=== PATIENT | male | born 1975 | race Caucasian/White ===

== ENCOUNTER 2017-08-16 12:37 | Inpatient (IN) | payer OTHER ==
[~2017-08-16] VITALS: Ht 185.4 cm; Wt 159.1 kg
[~2017-08-16 12:37] MED LIST: ASPIRIN325 PO; CARVEDILOL12.5 MG PO; HYDROCHLOROTHIA25 M2 PO; KLOR-CON 1010 MEQ PO; LASIX 40 MG TAB40 M2 PO; LISINOPRIL5 MG PO; SYMBICORT80 MCG/4.1 INH
[2017-08-16 12:46] VITALS: BP 131/84
[2017-08-16 13:27] LABS: URINE BLOOD TRACE (Negative); URINE CLARITY SL CLOUDY; URINE COLOR YELLOW; URINE GLUCOSE-RANDOM NEGATIVE (Negative); URINE KETONES NEGATIVE (Negative); URINE LEUKOCYTES-REFLEX NEGATIVE (Negative); URINE PROTEIN TRACE (Negative); URINE SPECIFIC GRAVITY >= 1.030 (1.005-1.030); URINE UROBILINOGEN 0.2 E.U./dl (0.2-1.0)
[2017-08-16 13:29] LABS: ICTOTEST (BILI CONFIRMATORY) Negative (Negative); URINE BILIRUBIN 1+ (Negative); URINE NITRITE-REFLEX POSITIVE (Negative)
[2017-08-16 13:35] LABS: SQUAMOUS 0-3 Few /LPF (0-3); URINE RBC 3-10 Few /HPF (0-2); URINE WBC-REFLEX 6-15 Few /HPF (0-5)
[2017-08-16 13:36] LABS: CASTS None Seen /LPF (None Seen); CRYSTALS None Seen /LPF (None Seen); MUCUS >6 Heavy strn/LPF (None Seen)
[2017-08-16 13:44] LABS: HEMATOCRIT 46.9 % (42.0-52.0); MCV 91.2 fL (80.0-100.0); MPV 8.1 fl. (7.2-11.1); NUCLEATED RBCS 0 /100WBC; PLATELET COUNT* 237 thou/uL (150-400); RBC 5.15 mil/uL (4.50-6.00); RDW-CV 13.4 % (10.5-14.5); WBC 27.3 thou/uL (4.0-11.0)
[2017-08-16 13:56] LABS: ALBUMIN 3.4 g/dL (3.4-5.0); CREATININE 1.5 mg/dL (0.6-1.3); POTASSIUM 3.6 mmol/L (3.5-5.1); TOTAL BILIRUBIN 1.7 mg/dL (<0.1-1.0); TOTAL PROTEIN 7.2 g/dL (6.4-8.2)
[2017-08-16 14:07] LABS: ABSOLUTE LYMPHOCYTES 2.2 thou/uL (0.8-5.3); ABSOLUTE MONOCYTES 0.8 thou/uL (0.0-1.2); ABSOLUTE NEUTROPHILS 24.3 thou/uL (1.6-8.1)
[2017-08-16 14:08] LABS: PLATELET ESTIMATE ADEQUATE
[2017-08-16 15:07] LABS: INFLUENZA A ANTIGEN None Detected (None Detect); INFLUENZA B ANTIGEN None Detected (None Detect)
--- NOTE | 2017-08-16 16:38 | EKG ---
[place] [address] ELECTROCARDIOGRAM REPORT Name: ZENAIDA GEORGES JOEY Room: [place] [address] ADM IN [facility].#: [id number] Admission: 08/16/17 Attend Phys: Barb Angelo MD Discharge: Date of : 73 Report #: [id number] THIS REPORT FOR: //name// [facility] ED Test Date: 2017-08-16 Test Time: 13:08:12 Pat Name: ZENAIDA GEORGES Department: Room: [facility] Gender: M Paralegals: Lalitha MARQUEZ : 1975 Requested By: Mariann Salcedo Order Number: [id number] MD: Allen Patterson Measurements Intervals [place] Rate: 117 P: 47 NC: 148 QRS: 37 QRSD: 98 T: -5 QT: 319 QTc: 445 Interpretive Statements Sinus tachycardia Low voltage, precordial leads Compared to ECG 06/10/2015 13:58:53 Low QRS voltage now present Atrial abnormality no longer present Intraventricular conduction delay no longer present Electronically Signed On 08-16-2017 16:38:46 RECORDING ENGINEER by Allen Patterson [email or web address] <ELECTRONICALLY SIGNED> By: Allen Patterson MD, FACC 08/16/17 1638 1308 1308 Allen Patterson MD, [facility] /EPI
[2017-08-16 19:16] VITALS: BP 90/45
[2017-08-16 21:12] VITALS: BP 101/46
[2017-08-16 21:55] VITALS: BP 110/70
[2017-08-17] VITALS: BP 117/71
[2017-08-17 04:00] VITALS: BP 130/52
[2017-08-17 04:56] LABS: ABSOLUTE BASOPHILS 0.1 thou/uL (0.0-0.2); ABSOLUTE LYMPHOCYTES 1.2 thou/uL (0.8-5.3); ABSOLUTE MONOCYTES 1.3 thou/uL (0.0-1.2); ABSOLUTE NEUTROPHILS 16.5 thou/uL (1.6-8.1); BASOPHILS 0.6 %; EOSINOPHILS 0.3 %; HEMATOCRIT 41.8 % (42.0-52.0); HEMOGLOBIN 14.2 gm/dL (14.0-18.0); LYMPHOCYTES 6.4 %; MCH 31.1 pg (26.0-34.0); MCHC 33.9 g/dL (28.0-37.0); MCV 91.8 fL (80.0-100.0); MONOCYTES 6.7 %; MPV 8.1 fl. (7.2-11.1); NUCLEATED RBCS 0 /100WBC; PLATELET COUNT* 177 thou/uL (150-400); RBC 4.55 mil/uL (4.50-6.00); RDW-CV 13.3 % (10.5-14.5); WBC 19.1 thou/uL (4.0-11.0)
[2017-08-17 05:44] LABS: ALBUMIN 2.8 g/dL (3.4-5.0); CALCIUM 8.4 mg/dL (8.5-10.1); CREATININE 1.4 mg/dL (0.6-1.3); MAGNESIUM 1.8 mg/dL (1.8-2.4); POTASSIUM 4.2 mmol/L (3.5-5.1); TOTAL BILIRUBIN 1.3 mg/dL (<0.1-1.0); TOTAL PROTEIN 5.7 g/dL (6.4-8.2)
[2017-08-17 08:30] VITALS: BP 141/62
[2017-08-17 11:31] VITALS: BP 121/80
--- NOTE | 2017-08-17 15:36 | CON ---
[address] [address] CONSULTATION Name: ZENAIDA GEORGES Room: [address] ADM IN M.R.#: [id number] Admission: 08/16/17 Attend Phys: Barb Angelo MD Discharge: Date of : 73 Report #: [id number] THIS REPORT FOR: //name// CC: Clyde Farooq MD [facility] physician/PCP Barb Angelo INDICATION: Preoperative evaluation. HISTORY OF PRESENT ILLNESS: The patient is a very pleasant 41-year-old gentleman who was seen by myself in the past for nonischemic cardiomyopathy. At the time of his diagnosis, his ejection fraction was 25-30%. With treatment, his heart function normalized. The last echocardiogram I have on file is from April 2016, at which time his ejection fraction was 55-60%. He had been on carvedilol and lisinopril as well as low dose furosemide. In the interim, he has run out of carvedilol. He continues on furosemide with potassium supplementation and lisinopril. He denies any chest pain, tightness or pressure. He is not having any significant shortness of breath, dyspnea, orthopnea, or paroxysmal nocturnal dyspnea. He is without cardiac complaint at this time. PAST MEDICAL HISTORY: 1. Nonischemic cardiomyopathy. 2. Cardiac catheterization 06/10/2015. EF 20-25%. Dilated left ventricle. Elevated left ventricular end diastolic pressure. Moderate pulmonary hypertension. Normal coronary arteries. Findings consistent with nonischemic cardiomyopathy. 3. Hypertension. 4. Hyperlipidemia. 5. Chronic renal insufficiency. 6. Morbid obesity. 7. Obstructive sleep apnea. PAST SURGICAL HISTORY: 1. Hernia repair in 1974. 2. Right arthroscopic knee surgery in 1990 and 1998. FAMILY HISTORY: The patient's father with pulmonary embolus. The patient's mother has hypertension. He has a sister who is healthy. Two daughters who are healthy. SOCIAL HISTORY: The patient is a lifelong nonsmoker. ALLERGIES: TETRACYCLINE. CURRENT MEDICATIONS: Furosemide 40 mg p.o. daily, lisinopril 5 mg p.o. daily, and potassium chloride 20 [place] [address] CONSULTATION Name: ZENAIDA GEORGES Room: [address] IN [facility]#: [id number] Admission: 08/16/17 Attend Phys: Barb Angelo MD Discharge: Date of : 73 Report #: [id number] REVIEW OF SYSTEMS: Positive for abdominal discomfort and nausea. A 14-point review of systems otherwise unremarkable. PHYSICAL EXAMINATION: VITAL SIGNS: Blood pressure 130/52, pulse 107 and regular. GENERAL: This is an obese, pleasant white male, in no distress. Mood and affect appropriate. HEENT: Extraocular muscles are intact. Mucous membranes are moist. NECK: Shows no jugular venous distention. There are no carotid bruits. CHEST: Reveals clear lung joel without wheezes, rales or rhonchi. CARDIOVASCULAR: Reveals a tachycardic rhythm that is regular, without gallop or murmur. ABDOMEN: Reveals normal bowel sounds. The abdomen is minimally gender. EXTREMITIES: Shows no edema. Peripheral pulses are 2+ and palpable. LABS: Reviewed. Electrolytes within normal limits. BUN 20, creatinine 1.4, serum glucose 132. White blood cell count 19.1, hemoglobin 14.2, and platelet count 177,000. IMPRESSION AND RECOMMENDATIONS: 1. The patient has diverticulitis. He has been placed on IV antibiotics. His symptoms appear to be improving. There is questions as to whether or not he will need surgery acutely or electively in the near future. Continue treatment per general surgery. 2. History of nonischemic cardiomyopathy. He has been off his medications for sometime. I have asked to repeat an echocardiogram at this time. Physically, he does not appear to have any acute exacerbation of his heart failure. We will give IV fluid bolus for his mild tachycardia. Consider whether or not beta irving indicated pending echocardiogram results. 3. History of hypertension. Blood pressure adequately controlled at present. We will continue lisinopril at current dose. We will decide whether or not the patient needs to furosemide pending echocardiogram results. At this point in time, the patient does not appear to be a prohibitive risk to undergo surgery. I would like to obtain his echo results first to assure that his left ventricular systolic function remains normal. <ELECTRONICALLY SIGNED> By: Allen Patterson MD, FACC 08/17/17 1536 1026 [id number] Patterson MD, FACC /nt
--- NOTE | 2017-08-17 15:53 | 2DMMODE ---
[place] [address] 2 D/M-MODE ECHOCARDIOGRAM Name: ZENAIDA GEORGES Room: [address] ADM IN [facility]#: [id number] Admission: 08/16/17 Attend Phys: Barb Angelo, Discharge: Date of : 73 Date of Service: 08/17/17 1552 Report #: [id number] THIS REPORT FOR: //name// APPROVED REPORT Study performed: 08/17/2017 10:46:08 EXAM: Comprehensive 2D, Doppler, and color-flow Echocardiogram Patient Location: In-Patient Room #: [facility] Status: routine BSA: 2.70 HR: 105 bpm BP: 130/52 mmHg Other Information Study Quality: Good Indications Pre-Op Hx. of NICM 2D Dimensions LVEF(%): 63.72 (>50%) IVSd: 16.07 (7-11mm) LVOT Diam: 22.37 (18-24mm) LVDd: 46.66 mm PWd: 11.83 (7-11mm) Ascending Ao: 29.83 (22-36mm) LVDs: 30.53 (25-40mm) Aortic Root: 26.11 mm Beyer's LVEF: 63.72 % Volumes Left Atrial Volume (Systole) LA ESV Index: 24.80 mL/m2 Aortic Valve AoV Peak Huy.: 1.63 m/s AO Peak Gr.: 10.57 mmHg LVOT Max P.49 mmHg AO Mean Gr.: 6.09 mmHg LVOT Mean P.92 mmHg LVOT Max V: 1.17 m/s AO V2 VTI: 27.98 cm LVOT Mean V: 0.80 m/s VAISHALI (VTI): 2.80 cm2 LVOT V1 VTI: 19.94 cm Mitral Valve E/A Ratio: 1.06 [place] [address] 2 D/M-MODE ECHOCARDIOGRAM Name: ZENAIDA GEORGES Room: [address] IN .R.#: [id number] Admission: 08/16/17 Attend Phys: Barb Angelo, Discharge: Date of : 73 Date of Service: 08/17/17 1552 Report #: [id number] MV Decel. Time: 180.26 ms MV E Max Huy.: 1.08 m/s MV PHT: 52.28 ms MVA (PHT): 4.21 cm2 TDI E/Lateral E': 7.71 E/Medial E': 12.00 Medial E' Huy.: 0.09 m/s Lateral E' Huy.: 0.14 m/s Pulmonary Valve PV Peak Huy.: 1.16 m/s PV Peak Gr.: 5.34 mmHg Tricuspid Valve TR Peak Gr.: 20.23 mmHg RVSP: 25.23 mmHg Left Ventricle The left ventricle is normal size. There is normal LV segmental wall motion. There is normal left ventricular wall thickness. Left ventricular systolic function is normal. LVEF is 55-60%. Transmitral Doppler flow pattern suggests impaired LV relaxation. Right Ventricle The right ventricle is normal size. The right ventricular systolic function is normal. Atria Left atrium is mildly dilated. The right atrium size is normal. Aortic Valve The aortic valve is normal in structure. No aortic regurgitation is present. There is no aortic valvular stenosis. Mitral Valve The mitral valve is normal in structure. Mild mitral regurgitation. No evidence of mitral valve stenosis. Tricuspid Valve The tricuspid valve is normal in structure. Mild tricuspid regurgitation. The RVSP is _25.2 mmHg. Pulmonic Valve The pulmonary valve is normal in structure. There is no pulmonic [place] [address] 2 D/M-MODE ECHOCARDIOGRAM Name: ZENAIDA GEORGES Room: [address] IN .R.#: [id number] Admission: 08/16/17 Attend Phys: Barb Angelo, Discharge: Date of : 73 Date of Service: 08/17/17 1552 Report #: [id number] Great Vessels The aortic root is normal in size. IVC is normal in size and collapses with >50% inspiration Pericardium There is no pericardial effusion. <Conclusion> The left ventricle is normal size. There is normal left ventricular wall thickness. Left ventricular systolic function is normal. LVEF is 55-60%. Transmitral Doppler flow pattern suggests impaired LV relaxation. Left atrium is mildly dilated. Mild mitral regurgitation. Mild tricuspid regurgitation. The RVSP is _25.2 mmHg. <ELECTRONICALLY SIGNED> By: Allen Patterson MD, FACC 08/17/17 [phone] Allen Patterson MD, FACC /INF
[2017-08-17 17:59] VITALS: BP 107/55
[2017-08-17 20:10] VITALS: BP 111/58
[2017-08-18] VITALS: BP 113/74
[2017-08-18 04:00] VITALS: BP 123/76
[2017-08-18 05:23] LABS: ABSOLUTE BASOPHILS 0.2 thou/uL (0.0-0.2); ABSOLUTE EOSINOPHILS 0.1 thou/uL (0.0-0.7); ABSOLUTE LYMPHOCYTES 1.5 thou/uL (0.8-5.3); ABSOLUTE MONOCYTES 1.3 thou/uL (0.0-1.2); BASOPHILS 0.8 %; EOSINOPHILS 0.7 %; HEMATOCRIT 42.6 % (42.0-52.0); HEMOGLOBIN 14.4 gm/dL (14.0-18.0); LYMPHOCYTES 7.3 %; MCH 31.3 pg (26.0-34.0); MCHC 33.9 g/dL (28.0-37.0); MCV 92.3 fL (80.0-100.0); MONOCYTES 6.3 %; MPV 8.5 fl. (7.2-11.1); NUCLEATED RBCS 0 /100WBC; PLATELET COUNT* 200 thou/uL (150-400); POLYS 84.9 %; RBC 4.61 mil/uL (4.50-6.00); RDW-CV 13.4 % (10.5-14.5)
[2017-08-18 05:29] LABS: CALCIUM 8.4 mg/dL (8.5-10.1); CREATININE 1.3 mg/dL (0.6-1.3)
[2017-08-18 08:30] VITALS: BP 124/77
[2017-08-18 11:41] VITALS: BP 124/79
[2017-08-18 16:00] VITALS: BP 117/65
[2017-08-18 20:00] VITALS: BP 124/62
[2017-08-19] VITALS: BP 134/92
[2017-08-19 04:00] VITALS: BP 138/91
[2017-08-19 05:40] LABS: ALBUMIN 2.2 g/dL (3.4-5.0); CALCIUM 8.4 mg/dL (8.5-10.1); CREATININE 1.2 mg/dL (0.6-1.3); HEMATOCRIT 42.2 % (42.0-52.0); HEMOGLOBIN 14.3 gm/dL (14.0-18.0); MCH 31.5 pg (26.0-34.0); MCHC 33.9 g/dL (28.0-37.0); MCV 92.9 fL (80.0-100.0); MPV 8.4 fl. (7.2-11.1); PHOSPHORUS* 2.3 mg/dL (2.5-4.9); POTASSIUM 3.8 mmol/L (3.5-5.1); RBC 4.54 mil/uL (4.50-6.00); RDW-CV 13.3 % (10.5-14.5); TOTAL BILIRUBIN 0.5 mg/dL (<0.1-1.0); TOTAL PROTEIN 6.1 g/dL (6.4-8.2); WBC 16.1 thou/uL (4.0-11.0)
[2017-08-19 06:09] LABS: ALBUMIN 2.4 g/dL (3.4-5.0); CALCIUM 8.2 mg/dL (8.5-10.1); CREATININE 1.2 mg/dL (0.6-1.3); TOTAL BILIRUBIN 0.5 mg/dL (<0.1-1.0); TOTAL PROTEIN 5.5 g/dL (6.4-8.2)
[2017-08-19 08:00] VITALS: BP 150/95
[2017-08-19 11:58] VITALS: BP 141/98
[2017-08-19 14:47] VITALS: BP 141/98
[2017-08-19 15:34] VITALS: BP 152/91
[2017-08-20 00:45] VITALS: BP 125/82
[2017-08-20 04:00] VITALS: BP 136/84
[2017-08-20 05:29] LABS: HEMATOCRIT 45.6 % (42.0-52.0); HEMOGLOBIN 15.4 gm/dL (14.0-18.0); MCH 31.2 pg (26.0-34.0); MCHC 33.8 g/dL (28.0-37.0); MCV 92.4 fL (80.0-100.0); MPV 7.8 fl. (7.2-11.1); NUCLEATED RBCS 0 /100WBC; PLATELET COUNT* 256 thou/uL (150-400); RBC 4.93 mil/uL (4.50-6.00); RDW-CV 13.3 % (10.5-14.5); WBC 22.5 thou/uL (4.0-11.0)
[2017-08-20 06:08] LABS: CREATININE 1.4 mg/dL (0.6-1.3); POTASSIUM 4.6 mmol/L (3.5-5.1); TOTAL BILIRUBIN 0.9 mg/dL (<0.1-1.0); TOTAL PROTEIN 5.7 g/dL (6.4-8.2)
[2017-08-20 06:40] LABS: ABSOLUTE LYMPHOCYTES 1.8 thou/uL (0.8-5.3); ABSOLUTE MONOCYTES 0.7 thou/uL (0.0-1.2)
[2017-08-20 06:41] LABS: PLATELET ESTIMATE ADEQUATE; POLYCHROMASIA 1+
[2017-08-20 07:30] VITALS: BP 103/64
[2017-08-20 17:30] VITALS: BP 114/69
[2017-08-20 19:08] VITALS: BP 120/71
[2017-08-20 21:00] VITALS: BP 117/62
[2017-08-21 00:34] VITALS: BP 117/60
[2017-08-21 04:12] VITALS: BP 118/69
[2017-08-21 06:21] LABS: ABSOLUTE BASOPHILS 0.1 thou/uL (0.0-0.2); ABSOLUTE EOSINOPHILS 0.8 thou/uL (0.0-0.7); ABSOLUTE LYMPHOCYTES 1.6 thou/uL (0.8-5.3); ABSOLUTE MONOCYTES 1.7 thou/uL (0.0-1.2); ABSOLUTE NEUTROPHILS 13.1 thou/uL (1.6-8.1); BASOPHILS 0.7 %; EOSINOPHILS 4.6 %; HEMATOCRIT 40.6 % (42.0-52.0); LYMPHOCYTES 9.1 %; MCHC 33.1 g/dL (28.0-37.0); MCV 93.6 fL (80.0-100.0); MONOCYTES 9.9 %; NUCLEATED RBCS 0 /100WBC; PLATELET COUNT* 229 thou/uL (150-400); POLYS 75.7 %; RBC 4.34 mil/uL (4.50-6.00); RDW-CV 13.3 % (10.5-14.5); WBC 17.4 thou/uL (4.0-11.0)
[2017-08-21 06:26] LABS: HEMOGLOBIN 13.4 gm/dL (14.0-18.0)
[2017-08-21 06:31] LABS: ALBUMIN 1.9 g/dL (3.4-5.0); CALCIUM 7.8 mg/dL (8.5-10.1); CREATININE 1.5 mg/dL (0.6-1.3); MAGNESIUM 2.7 mg/dL (1.8-2.4); PHOSPHORUS* 3.2 mg/dL (2.5-4.9); POTASSIUM 4.2 mmol/L (3.5-5.1); TOTAL BILIRUBIN 0.5 mg/dL (<0.1-1.0); TOTAL PROTEIN 5.5 g/dL (6.4-8.2)
[2017-08-21 08:07] VITALS: BP 131/67
[2017-08-21 16:19] VITALS: BP 121/78
[2017-08-21 20:00] VITALS: BP 128/63
[2017-08-21 23:52] VITALS: BP 132/68; BP 132/82
[2017-08-22 05:08] LABS: MCH 31.4 pg (26.0-34.0); MCHC 33.4 g/dL (28.0-37.0); MCV 94.2 fL (80.0-100.0); MPV 7.9 fl. (7.2-11.1); RBC 4.89 mil/uL (4.50-6.00); RDW-CV 13.7 % (10.5-14.5)
[2017-08-22 05:09] LABS: HEMOGLOBIN 15.4 gm/dL (14.0-18.0)
[2017-08-22 05:19] LABS: ALBUMIN 1.9 g/dL (3.4-5.0); CALCIUM 7.9 mg/dL (8.5-10.1); CREATININE 1.3 mg/dL (0.6-1.3); MAGNESIUM 2.6 mg/dL (1.8-2.4); PHOSPHORUS* 3.4 mg/dL (2.5-4.9); POTASSIUM 3.5 mmol/L (3.5-5.1); TOTAL BILIRUBIN 0.3 mg/dL (<0.1-1.0); TOTAL PROTEIN 5.5 g/dL (6.4-8.2)
[2017-08-22 08:13] VITALS: BP 147/82
[2017-08-22 16:08] VITALS: BP 136/71
[2017-08-22 20:00] VITALS: BP 139/81
[2017-08-23 04:17] LABS: ABSOLUTE EOSINOPHILS 0.6 thou/uL (0.0-0.7); ABSOLUTE LYMPHOCYTES 1.6 thou/uL (0.8-5.3); ABSOLUTE MONOCYTES 1.1 thou/uL (0.0-1.2); ABSOLUTE NEUTROPHILS 7.6 thou/uL (1.6-8.1); EOSINOPHILS 5.6 %; HEMATOCRIT 38.4 % (42.0-52.0); LYMPHOCYTES 14.6 %; MCH 31.3 pg (26.0-34.0); MCHC 33.6 g/dL (28.0-37.0); MCV 93.1 fL (80.0-100.0); MONOCYTES 9.8 %; MPV 7.9 fl. (7.2-11.1); NUCLEATED RBCS 0 /100WBC; PLATELET COUNT* 224 thou/uL (150-400); RBC 4.13 mil/uL (4.50-6.00); RDW-CV 13.3 % (10.5-14.5); WBC 10.9 thou/uL (4.0-11.0)
[2017-08-23 04:29] LABS: HEMOGLOBIN 12.9 gm/dL (14.0-18.0)
[2017-08-23 04:31] LABS: ALBUMIN 1.9 g/dL (3.4-5.0); CALCIUM 7.9 mg/dL (8.5-10.1); CREATININE 1.1 mg/dL (0.6-1.3); MAGNESIUM 2.2 mg/dL (1.8-2.4); PHOSPHORUS* 3.3 mg/dL (2.5-4.9); POTASSIUM 3.5 mmol/L (3.5-5.1); TOTAL BILIRUBIN 0.3 mg/dL (<0.1-1.0); TOTAL PROTEIN 5.5 g/dL (6.4-8.2)
[2017-08-23 08:00] VITALS: BP 146/94
--- NOTE | 2017-08-23 15:42 | S ---
[place] [address] SURGICAL PATH RPT PROCEDURE Name: GREG AN Room: [address] IN M.R.#: [id number] Admission: 08/16/17 Date of : 73 Discharge: Report #: [id number] Path Case #: [id number] PATHOLOGY REPORT COLLECTION DATE: 08/19/2017 RECEIVED DATE: 08/20/2017 SUBMITTING PHYS: Dr. Bobby Ram OTHER PHYS: Dr. Barb Angelo SPECIMEN(S) RECEIVED: A.Sigmoid colon * * * * * * * * * * * * FINAL DIAGNOSIS: Sigmoid colon: - Two segments of benign colon with longer segment showing diverticular disease including chronic and acute diverticulitis and evidence of perforation including pericolic abscess in association with vegetable material and chronic and acute serositis and serosal fibrosis. - One benign pericolic lymph node. (BRUNO:mariangel; 08/23/2017) PATHOLOGIST: Abdullahi Hammonds M.D. REPORT ELECTRONICALLY SIGNED BY: Abdullahi Hammonds M.D. DATE/TIME: 08/23/2017 15:41 * * * * * * * * * * * * GROSS PATHOLOGY: Received in formalin labeled "Greg An, sigmoid colon" and consists of 2 segments of large intestine measuring 8.2 cm in length by 2.6 cm in diameter and 16.0 cm in length by 3.1 cm in diameter. Each segment is surrounded by mesocolon that measures up to 2.7 cm thick. The serosa of each is glistening, yellow, red, with prominent exudate identified. The shorter segment is opened longitudinally. The lumen contains pasty brown green stool. The mucosa is hyperemic, ho, glistening, with no masses. This segment is further serially transversely sectioned revealing an intact muscularis propria. No diverticula are identified. The longer segment is opened longitudinally. The lumen contains pasty brown green stool and "fecal balls" measuring up to 0.7 cm in greatest diameter. The mucosa is hyperemic, ho, glistening, with no masses identified. The segment is further serially transversely sectioned revealing a few diverticula ranging in depth from 0.3 cm to 0.6 p.m. A definitive perforation is not grossly identified. The mesocolon is fibrotic, yellow orange, [place] [address] SURGICAL PATH RPT PROCEDURE Name: GREG AN Room: [address] IN [facility].#: [id number] Admission: 08/16/17 Date of : 73 Discharge: Report #: [id number] Path Case #: [id number] Braille Coder sections are submitted A1-A9. A1 margins of shorter segment A2-A3 transmural sections of shorter segment A4 margins of longer segment A5-A7 transmural sections of longer segment A8-A9 mesocolon of longer segment (SARAH; 08/20/2017) CLINICAL HISTORY: Diverticulitis with intraperitoneal abscess INITIAL CPT CODE(S): A; 32046 Professional services performed by [facility] at [facility] [address] [place] [address] Technical services performed by [facility] at [address] [place] [address], [address], [place] [address]. [facility] [address] [place] [address] PHONE: [phone] DIRECTOR: Woo Saldana M.D. * * * END OF REPORT * * *
[2017-08-23 16:00] VITALS: BP 144/94
[2017-08-23 20:20] VITALS: BP 136/74
[2017-08-24 00:17] VITALS: BP 128/79
[2017-08-24 04:00] VITALS: BP 148/89
[2017-08-24 06:24] LABS: CALCIUM 8.3 mg/dL (8.5-10.1); CREATININE 0.9 mg/dL (0.6-1.3); MAGNESIUM 2.2 mg/dL (1.8-2.4); PHOSPHORUS* 3.3 mg/dL (2.5-4.9)
[2017-08-24 07:30] VITALS: BP 136/80
[2017-08-24 16:00] VITALS: BP 118/66
[2017-08-24 20:30] VITALS: BP 133/91
[2017-08-24 23:43] VITALS: BP 149/79
[2017-08-25 03:50] VITALS: BP 140/79
[2017-08-25 08:00] VITALS: BP 124/68
[2017-08-25 15:00] VITALS: BP 130/76
[2017-08-25 18:03] VITALS: BP 124/68
[2017-08-25 20:30] VITALS: BP 133/71
[2017-08-26 00:14] VITALS: BP 133/78
[2017-08-26 03:22] VITALS: BP 144/70
[2017-08-26 05:53] LABS: HEMATOCRIT 41.7 % (42.0-52.0); HEMOGLOBIN 13.8 gm/dL (14.0-18.0); MCH 30.6 pg (26.0-34.0); MCHC 33.1 g/dL (28.0-37.0); MCV 92.3 fL (80.0-100.0); RBC 4.52 mil/uL (4.50-6.00); RDW-CV 13.2 % (10.5-14.5); WBC 14.7 thou/uL (4.0-11.0)
[2017-08-26 06:19] LABS: ALBUMIN 2.3 g/dL (3.4-5.0); CALCIUM 8.4 mg/dL (8.5-10.1); CREATININE 1.3 mg/dL (0.6-1.3); TOTAL BILIRUBIN 0.4 mg/dL (<0.1-1.0); TOTAL PROTEIN 5.9 g/dL (6.4-8.2)
[2017-08-26 08:15] VITALS: BP 139/81
[2017-08-26 15:54] VITALS: BP 143/79
[2017-08-26 20:50] VITALS: BP 126/83
[2017-08-27] VITALS (7 sets, daily range): BP systolic 125–143; BP diastolic 72–87
[2017-08-27] MEDS ORDERED: HYDROCODONE-ACE15 ML PO (15:32)
--- NOTE | 2017-09-08 10:47 | OP ---
[address] [address] OPERATIVE REPORT Name: ZENAIDA GEORGES Room: [address] IN M.R.#: [id number] Admission: 08/16/17 Attend Phys: Barb Angelo MD Discharge: 08/27/17 Date of : 73 Report #: [id number] THIS REPORT FOR: //name// CC: HAYDEE physician/PCP Barb Angelo DATE OF SERVICE: 08/19/2017 PRIMARY CARE PHYSICIAN: There is no primary care physician. PREOPERATIVE DIAGNOSES: 1. Diverticulitis with free intraperitoneal air. 2. Morbid obesity with a body mass index of 48. POSTOPERATIVE DIAGNOSES: 1. Perforated diverticulitis with multiple intraperitoneal abscesses. 2. Morbid obesity with a body mass index of 48. PROCEDURES: Diagnostic laparoscopy converted to exploratory laparotomy with sigmoid colon resection and Saulo's colostomy, drainage of intraperitoneal abscesses and placement of Prevena wound VAC. SURGEON: Dr. Bobby Ram. ENVIRONMENTAL HEALTH TECHNICIAN: Dr. Katlin Lyle. SECOND LUMBER CHAIN OFFBEARER: Dr. Jose Enrique Knight. ANESTHESIA: General endotracheal. ESTIMATED BLOOD LOSS: 300 mL. COMPLICATIONS: None. SPECIMEN REMOVED: Sigmoid colon. INDICATIONS FOR PROCEDURE: This is a 41-year-old morbidly obese gentleman who presented to the Emergency Room 3 days ago with acute diverticulitis with localized free air. There was also noted to be a small amount of free air in the subdiaphragmatic space on the right side. However, he was quite stable and he requested that we attempt conservative treatment rather than take him immediately to surgery. Over the next 3 days, he continued to improve clinically. However, a CT scan was ordered today, which showed increased amount of free intraperitoneal air and enlarging air and fluid collection surrounding the sigmoid colon. So, we chose to take him to surgery [place] [address] OPERATIVE REPORT Name: ZENAIDA GEORGES Room: [address]#: [id number] Admission: 08/16/17 Attend Phys: Barb Angelo MD Discharge: 08/27/17 Date of : 73 Report #: [id number] DESCRIPTION OF PROCEDURE: After obtaining proper consents and discussing risks and complications with the patient, he was taken to the operating room, laid in a supine position and administered general anesthesia. A Costello catheter was inserted. He was then prepped and draped in the usual fashion. A timeout was performed. We confirmed the appropriate patient and procedure. All necessary equipment was within the room. We then made a small supraumbilical skin incision with a #11 scalpel blade. This was carried down through the skin into the subcutaneous tissue using electrocautery for hemostasis. Once the fascia was encountered, it was incised along the midline, grasped and elevated with [facility] clamps and divided further. The peritoneum was then bluntly opened using a hemostat. A finger was placed inside the peritoneal cavity to assure there were no stephanie-incisional adhesions. Next, 2-0 Vicryl sutures were placed in a [id number] fashion to secure the Hermilo trocar, which was then inserted and insufflation was begun. Once insufflation was complete, we attempted to visualize the intra-abdominal organs; however, there were quite a few omental adhesions, mostly in the right lower quadrant, but also somewhat in the left lower quadrant. We were able to sweep away some of these adhesions just using the camera and once we swept away the omentum, we identified a very large abscess cavity in the right lower quadrant and it appeared to be surrounding the sigmoid colon. At this point, we knew that we would have to most likely do a resection, so we immediately converted to a laparotomy. The insufflation was stopped, the air was released. Trocar was removed. We then made a midline incision extending from the supraumbilical incision down towards the pubic symphysis using a #10 scalpel blade. This was carried down through the skin into the subcutaneous tissue until the fascia was encountered. The fascia was then opened for the entire length of the incision as was the peritoneum. We were then able to explore the abdominal cavity and identified multiple areas of adhesions and thickened bowel. We were able to separate the omentum and open the numerous small abscess cavities which were suctioned immediately. We then identified the sigmoid colon and because the patient was quite morbidly obese, there were extremely large epiploic appendages surrounding his entire sigmoid colon, which also made identification of some of the anatomy more difficult and also these epiploic appendages were attached to the structures surrounding the sigmoid colon. We did identify that the sigmoid colon was fairly redundant and went over to the right side and that appears to be where the perforation was, either just to the right or right in the midline. Just posterior to the bladder, there was a large area of inflammation. We did not actually see any active stool leaking out, but there were numerous areas of inflammatory fibrinous tissue. At this point, we elected to perform a sigmoid colon resection. We elected to take down the White line of Toldt along the left pericolic gutter first and then chose an area for the proximal resection. [place] [address] OPERATIVE REPORT Name: ZENAIDA GEORGES Room: [address]#: [id number] Admission: 08/16/17 Attend Phys: Barb Angelo MD Discharge: 08/27/17 Date of : 73 Report #: [id number] mesentery of the descending colon. Then, we used a YOSSI 80 to divide the colon in this area. We then sequentially clamped and divided the mesentery of the sigmoid colon. The mesentery was quite thick, partially because of the inflammation and partially because of the patient's morbid obesity and this did take some time. Once we were beyond the perforation distally and there was some good healthy bowel, we used a TA-60 stapler to divide the distal colon. Prior to doing this, though I had made a hole in the sigmoid colon in an area of inflammation using the LigaSure device. So we resected that area first and then took the last segment with the TA stapler and then used the LigaSure to take down the mesocolon. Once this was done, we then explored the abdomen further. We identified that the small bowel was markedly dilated. We traced the small bowel from the ligament of Treitz all the way back to the terminal ileum. Just proximal to the terminal ileum, there was an area of inflammation noted, where there were abscesses as well, which was causing at least a partial small-bowel obstruction. These were then broken up. The small bowel was markedly dilated and we felt that this would be difficult to reduce back into the abdominal cavity without decompressing it. We made attempts to milk the fluid and air from the distal small bowel back into the stomach and nasogastric tube, but we were not able to get much air out. So, at this point, we elected to place a pursestring suture in the mid small bowel and then opened the small enterotomy and we placed our suction in the bowel and then milked the contents back towards our suction, both proximally and distally, decompressing the small bowel quite nicely. We then removed the suction, closed the pursestring suture and then oversewed the enterotomy using 2-0 Vicryl sutures in a Lembert fashion. We then bubble tested the area to assure that there was no leak. Following this, we copiously irrigated the abdominal cavity with approximately 6-7 liters of saline solution. We then chose an area for ostomy formation. Again because the patient is quite obese, the abdominal wall was quite thick and also the fat surrounding the colon was quite thick, so this was made much more difficult. We did open a window in the abdominal wall using electrocautery. This was carried down through the fascia. Once the fascia was encountered, a cruciate incision was made. We then opened the peritoneum and muscle as well and then we brought up the sigmoid colon through this with no tension noted whatsoever. We then placed a 19-Lithuanian Puma-Day drain. We then closed the large abdominal wound using 2 running #1 looped PDS sutures. The subcutaneous tissues were closed using 3-0 Vicryl suture. The skin was closed using jennifer. We then placed a Prevena wound VAC over top of the jennifer and then turned our attention to maturing the stoma. The stoma was first attached to the fascia using 2-0 Prolene suture at the 12 o'clock, 3 o'clock, 6 o'clock and 9 o'clock positions. We then matured the stoma in the usual fashion, opening the staple line and then everting it and attaching to the subcutaneous tissues and serosa. The patient was then awakened and transported to the recovery room in stable condition. [address] [address] OPERATIVE REPORT Name: ZENAIDA GEORGES Room: [address] IN ..#: [id number] Admission: 08/16/17 Attend Phys: Barb Angelo MD Discharge: 08/27/17 Date of : 73 Report #: [id number] Sponge, needle and instrument counts were all correct at the end of the procedure. The patient tolerated this well. <ELECTRONICALLY SIGNED> By: Bobby Ram DO 09/08/17 1047 2330 [id number] Ram DO /nt
[2018-06-14] MEDS ORDERED: LIPITOR 20 MG T20 M1 PO (11:12)
[2018-06-14] MEDS ORDERED: CELEXA20 MG PO (11:12)
== END 2017-08-27 18:15 | disposition home health service (06) | DRG 329 ==
LOC: M.ERS 12:37 → M.2W 14:56 → M.TBA-ER 14:56 → M.2W 21:12 → M.ORTHSURG 08-19 14:51 → M.2W 08-20 00:52 → M.ORTHSURG 08-20 17:49
PROVIDERS: Internal Medicine; Nurse Practitioner Family; Surgery; ADMIT Internal Medicine
DX: K57.20 Diverticulitis of large intestine with perforation and abscess without bleeding (principal); I50.23 Acute on chronic systolic (congestive) heart failure; J15.9 Unspecified bacterial pneumonia; E44.1 Mild protein-calorie malnutrition; I42.9 Cardiomyopathy, unspecified; Z68.42 Body mass index [BMI] 45.0-49.9, adult; K56.600 Partial intestinal obstruction, unspecified as to cause; N17.9 Acute kidney failure, unspecified; R65.10 Systemic inflammatory response syndrome (SIRS) of non-infectious origin without acute organ dysfunction; I13.0 Hypertensive heart and chronic kidney disease with heart failure and stage 1 through stage 4 chronic kidney disease, or unspecified chronic kidney disease; N18.2 Chronic kidney disease, stage 2 (mild); E86.0 Dehydration; R00.0 Tachycardia, unspecified; I27.20 Pulmonary hypertension, unspecified; E78.5 Hyperlipidemia, unspecified; E66.01 Morbid (severe) obesity due to excess calories; G47.33 Obstructive sleep apnea (adult) (pediatric); K59.00 Constipation, unspecified; D64.9 Anemia, unspecified; Z28.21 Immunization not carried out because of patient refusal; Z79.82 Long term (current) use of aspirin; Z79.899 Other long term (current) drug therapy; Z88.1 Allergy status to other antibiotic agents; Z82.49 Family history of ischemic heart disease and other diseases of the circulatory system; Z83.79 Family history of other diseases of the digestive system

== ENCOUNTER 2018-06-20 09:15 | Inpatient (IN) | payer OTHER ==
[~2018-06-20] VITALS: Ht 185.4 cm; Wt 149.7 kg
--- NOTE | ~2018-06-20 | H ---
[address] [address] HISTORY AND PHYSICAL Name: ZENAIDA GEORGES Room: [address] IN M.R.#: [id number] Admission: 06/20/18 Attend Phys: Bobby Ram DO Discharge: 06/28/18 Date of : 73 Report #: [id number] THIS REPORT FOR: //name// Please refer to the History and Physical performed in the physician's office. By: 1553Medical Records Staff IFRAH /KATHY
[~2018-06-20 09:15] MED LIST changes: +CELEXA20 MG PO; +HYDROCODONE-ACE15 ML PO; +LIPITOR 20 MG T20 M1 PO
[2018-06-20 11:37] LABS: HEMATOCRIT 53.7 % (42.0-52.0); HEMOGLOBIN 18.3 gm/dL (14.0-18.0); MCH 31.7 pg (26.0-34.0); MCHC 34.1 g/dL (28.0-37.0); MPV 7.9 fl. (7.2-11.1); RBC 5.78 mil/uL (4.50-6.00); WBC 11.1 thou/uL (4.0-11.0)
[2018-06-20 11:46] LABS: CALCIUM 9.4 mg/dL (8.5-10.1); CREATININE 1.4 mg/dL (0.6-1.3); POTASSIUM 4.1 mmol/L (3.5-5.1)
[2018-06-20 12:00] VITALS: BP 128/85
[2018-06-20 22:40] VITALS: BP 108/83
[2018-06-20 23:45] VITALS: BP 123/68
[2018-06-21] VITALS (37 sets, daily range): BP systolic 65–106; BP diastolic 28–61
[2018-06-21 04:47] LABS: HEMATOCRIT 48.8 % (42.0-52.0); HEMOGLOBIN 16.4 gm/dL (14.0-18.0); MCH 31.6 pg (26.0-34.0); MCHC 33.5 g/dL (28.0-37.0); MCV 94.2 fL (80.0-100.0); MPV 8.4 fl. (7.2-11.1); NUCLEATED RBCS 0 /100WBC; PLATELET COUNT* 231 thou/uL (150-400); RBC 5.18 mil/uL (4.50-6.00); RDW-CV 12.9 % (10.5-14.5); WBC 22.8 thou/uL (4.0-11.0)
--- NOTE | 2018-06-21 05:17 | NUR ---
PATIENT ARRIVED TO UNIT AT APPROX 2245. ALERT AND ORIENTED X4. ASSESSMENT COMPLETED AND CHARTED. VSS ON 2 LITERS 02 VIA NC. NO COMPAINTS OF NAUSEA OR SOA. PAIN HAS BEEN MANAGED WITH MEDICATION. 02 SATS DROPPED, TITRATED UP TO 4 LITERS BY RT, DR BELL NOTIFIED THAT SATS REMAIN LOW AND ORDERED CPAP FOR NIGHT, SATS STABALIZED ONCE CPAP WAS ALLIED. RESTING COMFORTABLY IN BED ON HOURLY ROUNDS. CALL LIGHT WITHIN REACH. NURSING WILL CONTINUE TO MONITOR.
[2018-06-21 06:11] LABS: ALBUMIN 3.1 g/dL (3.4-5.0); CALCIUM 8.3 mg/dL (8.5-10.1); CREATININE 1.6 mg/dL (0.6-1.3); POTASSIUM 4.7 mmol/L (3.5-5.1); TOTAL BILIRUBIN 1.3 mg/dL (<0.1-1.0); TOTAL PROTEIN 5.9 g/dL (6.4-8.2)
[2018-06-21 06:38] LABS: ABSOLUTE LYMPHOCYTES 0.7 thou/uL (0.8-5.3); ABSOLUTE MONOCYTES 1.1 thou/uL (0.0-1.2); ANISOCYTOSIS 1+; PLATELET ESTIMATE ADEQUATE; POIKILOCYTOSIS 1+
--- NOTE | 2018-06-21 11:20 | EKG ---
[place] [address] ELECTROCARDIOGRAM REPORT Name: DESTINIZENAIDA Room: [address] ADM IN M.R.#: [id number] Admission: 06/20/18 Attend Phys: Bobby Ram DO Discharge: Date of : 73 Report #: [id number] THIS REPORT FOR: //name// [facility] Test Date: 2018-06-20 Test Time: 11:32:46 Pat Name: ZENAIDA GEORGES Department: Room: [facility] Gender: M Pole Shaver Helper: TR : 1975 Requested By: Bobby Ram Order Number: [id number] Reading MD: Charlie Bryant Measurements Intervals [place] Rate: 96 P: 60 UT: 153 QRS: 50 QRSD: 99 T: 19 QT: 343 QTc: 434 Interpretive Statements Sinus rhythm Compared to ECG 08/16/2017 13:08:12 Sinus tachycardia no longer present Electronically Signed On 06-21-2018 11:19:43 LEATHER CARVER by Charlie Bryant [email or web address] <ELECTRONICALLY SIGNED> By: Charlie Bryant MD, [facility] 06/21/18 1119 1132 31 Charlie Bryant MD, FACC /EPI
[2018-06-21 11:40] LABS: URINE BILIRUBIN NEGATIVE (Negative); URINE BLOOD 3+ (Negative); URINE CLARITY CLEAR; URINE COLOR YELLOW; URINE GLUCOSE-RANDOM NEGATIVE (Negative); URINE KETONES NEGATIVE (Negative); URINE LEUKOCYTES-REFLEX 1+ (Negative); URINE PROTEIN 1+ (Negative); URINE SPECIFIC GRAVITY 1.025 (1.005-1.030); URINE UROBILINOGEN 0.2 E.U./dl (0.2-1.0)
[2018-06-21 11:42] LABS: URINE NITRITE-REFLEX POSITIVE (Negative)
[2018-06-21 11:53] LABS: BACTERIA-REFLEX 1-9 Few /HPF (None Seen); CASTS None Seen /LPF (None Seen); CRYSTALS None Seen /LPF (None Seen); MUCUS 0-3 Light strn/LPF (None Seen); SQUAMOUS 0-3 Few /LPF (0-3); URINE RBC 3-10 Few /HPF (0-2); URINE WBC-REFLEX 6-15 Few /HPF (0-5)
--- NOTE | 2018-06-21 12:02 | NUR ---
ASSUMED CARE OF PT THIS AM AROUND 0715- UPON ASSESSMENT PT NOTED TO BE RESTING IN BED, CPAP IN PLACE INDICATED- PT A&O X4- CONTINENT OF BOWEL AND BLADDER- DIMINISHED LUNG SOUNDS NOTED, RESP EVEN AND UN-LABORED- VSS, O2 SAT 95% ON CPAP- PT TRANSITIONED TO 2L VIA NC AND TOLERATING WELL, O2 SAT 92%- ABDOMEN OBESE/SOFT/TENDER, BS HYPOACTIVE- MIDLINE ABD INCISSION REPORTED, ABD BINDER IN PLACE INDICATED- LEFT LOWER LOBE HARI DRAIN NOTED IN PLACE, SERIOUSSANGIOUS- IV NOTED TO RIGHT HAND INTACT, IVF INFUSSING PRESCIBED- CHEST X-RAY COMPLETED THIS AM PRESCIBED, ZOYSN PRESCIBED THIS SHIFT AND GIVEN PRESCIBED- UA COLLECTED WITH RESULTS NOTED- AROUND 1120 PT REPORTS NUMBNESS THAT COMES AND GOES WITH MOVEMENT TO LEFT HAND- BP NOTED AT 78/33, HR 104- NOTIFIED WITH ORDERS RECIEVIED FOR NS 1L BOLUS THAT HAS BEEN STARTED AND CT OF HEAD WHICH HAS BEEN COMPLETED AND NEGATIVE-COREG D/C'D AND SCHEDULED LISINOPRIL DECREASED TO 10MG DAILY- SCHEDULED TORADOL THIS AM AT 0917- NEW SCHEDULED TAMADOL AT 1114 R/T ABD PAIN- PT CURRENTLY UP IN BED SIDE RECLINER, TOLERATING WELL- CALL LIGHT AND PERSONAL BELONGINGS WITH IN REACH- HOURLY ROUNDS IN PLACE R/T SAFETY/NEEDS- ALL NEEDS MET AT THIS TIME-[facility]
[2018-06-21 14:24] LABS: HEMATOCRIT 46.2 % (42.0-52.0); HEMOGLOBIN 15.3 gm/dL (14.0-18.0)
--- NOTE | 2018-06-21 15:23 | NUR ---
PATIENT TRANSFERED TO ROOM 3 FROM [facility]. RESIDENT MAHIN CAME TO BEDSIDE, VOICED TO NURSES THAT HE DID NOT WANT TO START PRESSORS UNLESS ABSOLUTELY NECESSARY. ORDERED A LITER BOLUS, TO BE GIVEN 500CC EACH TIME FOR FULL LITER IF PATIENT TOLERATES. PATIENT AXOX4, ASSESSMENT CHARTED. BLOOD PRESSURE IS SOFT BUT PATIENT ASYMPTOMATIC. VOICES PAIN, MEDICATION GIVEN. WILL CONTINUE TO MONITOR VITALS. PARKING INSPECTOR IN PLACE, EDUCATED ON ROOM AND CALL LIGHT. AT BEDSIDE.
--- NOTE | 2018-06-21 15:30 | NUR ---
ROBERTO RN TO TAKE OVER PATIENT AT THIS TIME
--- NOTE | 2018-06-21 16:35 | NUR ---
ASSUMED CARE OF PATIENT DENIES CP OR SOA. BP SOFT BUT ASYMPTOMATIC. SPOKE WITH SURGERY WILL MONITOR TILL BETA PAT AND ISRA HAVE WORN OFF. PT ALERT AND ORIENTED WARM AND PINK. WILL CONTINUE TO MONITOR.
--- NOTE | 2018-06-21 18:15 | NUR ---
PATIENT REMAINS ALERT. ON BIPAP.FAMILY AT BEDSIDE.
[2018-06-22] VITALS (24 sets, daily range): BP systolic 75–115; BP diastolic 38–60
[2018-06-22 09:28] LABS: HEMATOCRIT 42.9 % (42.0-52.0); HEMOGLOBIN 14.2 gm/dL (14.0-18.0); MCH 31.8 pg (26.0-34.0); MCHC 33.1 g/dL (28.0-37.0); MCV 95.8 fL (80.0-100.0); MPV 8.2 fl. (7.2-11.1); RBC 4.47 mil/uL (4.50-6.00); RDW-CV 13.8 % (10.5-14.5); WBC 15.5 thou/uL (4.0-11.0)
[2018-06-22 09:37] LABS: ALBUMIN 2.8 g/dL (3.4-5.0); CALCIUM 7.4 mg/dL (8.5-10.1); POTASSIUM 4.6 mmol/L (3.5-5.1); TOTAL BILIRUBIN 0.9 mg/dL (<0.1-1.0); TOTAL PROTEIN 6.2 g/dL (6.4-8.2)
[2018-06-22 09:38] LABS: CREATININE 3.9 mg/dL (0.6-1.3)
--- NOTE | 2018-06-22 14:41 | NUR ---
RE: pharmacy renal dosing order. Decreased tramadol per label recommendation. Zosyn is dosed per renal function per extended-infusion protocol. (Dose decreases at 20 ml/min crcl). thank you.
--- NOTE | 2018-06-22 17:20 | 2DMMODE ---
[place] [address] 2 D/M-MODE ECHOCARDIOGRAM Name: DESTINIZENAIDA COOK Room: 003- ADM IN [facility]#: [id number] Admission: 06/20/18 Attend Phys: Bobby Ram DO Discharge: Date of : 73 Date of Service: 06/22/18 1720 Report #: [id number] THIS REPORT FOR: //name// APPROVED REPORT Study performed: 06/22/2018 15:22:04 EXAM: Comprehensive 2D, Doppler, and color-flow Echocardiogram Patient Location: In-Patient Room #: 003 Status: routine BSA: 2.66 HR: 88 bpm BP: 106/52 mmHg Rhythm: NSR Other Information Study Quality: Good Indications Chest Pain 2D Dimensions IVSd: 9.22 (7-11mm) LVOT Diam: 21.96 (18-24mm) LVDd: 63.59 mm PWd: 9.61 (7-11mm) Ascending Ao: 29.03 (22-36mm) LVDs: 35.93 (25-40mm) Aortic Root: 31.84 mm Volumes Left Atrial Volume (Systole) LA ESV Index: 20.90 mL/m2 Aortic Valve AoV Peak Huy.: 1.55 m/s AO Peak Gr.: 9.64 mmHg LVOT Max P.45 mmHg AO Mean Gr.: 5.28 mmHg LVOT Mean P.42 mmHg LVOT Max V: 1.17 m/s AO V2 VTI: 25.99 cm LVOT Mean V: 0.70 m/s VAISHALI (VTI): 3.23 cm2 LVOT V1 VTI: 22.17 cm Mitral Valve E/A Ratio: 1.19 MV Decel. Time: 252.78 ms MV E Max Huy.: 0.88 m/[place] [address] 2 D/M-MODE ECHOCARDIOGRAM Name: ZENAIDA GEORGES Room: [address] ADM IN .R.#: [id number] Admission: 06/20/18 Attend Phys: Bobby Ram DO Discharge: Date of : 73 Date of Service: 06/22/18 1720 Report #: [id number] MV PHT: 73.31 ms MVA (PHT): 3.00 cm2 TDI E/Lateral E': 4.40 E/Medial E': 6.77 Medial E' Huy.: 0.13 m/s Lateral E' Huy.: 0.20 m/s Pulmonary Valve PV Peak Huy.: 1.51 m/s PV Peak Gr.: 9.15 mmHg Left Ventricle The left ventricle is normal size. There is normal LV segmental wall motion. There is normal left ventricular wall thickness. Left ventricular systolic function is normal. The left ventricular ejection fraction is within the normal range. LVEF is 55-60%. The left ventricular diastolic function is normal. Right Ventricle The right ventricle is normal size. The right ventricular systolic function is normal. Atria The left atrium size is normal. The right atrium size is normal. Aortic Valve The aortic valve is normal in structure. No aortic regurgitation is present. There is no aortic valvular stenosis. Mitral Valve The mitral valve is normal in structure. There is no mitral valve regurgitation noted. No evidence of mitral valve stenosis. Tricuspid Valve The tricuspid valve is normal in structure. Unable to assess PA pressure. Trace tricuspid regurgitation. Pulmonic Valve Pulmonic valve is not well visualized. There is no pulmonic valvular regurgitation. Great Vessels The aortic root is normal in size. IVC is not well [place] [address] 2 D/M-MODE ECHOCARDIOGRAM Name: ZENAIDA GEORGES Room: [address] IN [facility]#: [id number] Admission: 06/20/18 Attend Phys: Bobby Ram DO Discharge: Date of : 73 Date of Service: 06/22/18 1720 Report #: [id number] Pericardium There is no pericardial effusion. <Conclusion> Left ventricular systolic function is normal. The left ventricular ejection fraction is within the normal range. <ELECTRONICALLY SIGNED> By: Clyde Arauz MD, [facility] 06/22/181719 19 19 Clyde Arauz MD, FAC /INF
--- NOTE | 2018-06-22 19:23 | NUR ---
1100 PATIENT ALERT AND ORIENTED, UP TO THE CHAIR WITH MINIMAL ASSISTANCE, PLAN OF CARE REVIEWED WITH PATIENT, VITAL SIGNS STABLE. WILL CONTINUE TO MONITOR.
--- NOTE | 2018-06-22 23:55 | NUR ---
RECIEVED REPORT AND ASSUMED CARE OF PT AT 1930. PT IN BED AT THAT TIME RESTING QUIETLY. PT GIVEN PRN NORCO FOR INCISIONAL PAIN. PT ASSISTED TO BSC WITH STANDBY ASSIST. PT PASSED GAS, NO BOWEL MOVEMENT. PT REPORTED HAVING MUCUS STOOL DURING AFTERNOON THEN HAVING SMALL BROWN LOOSE STOOL AT 1830. CALL LIGHT IN REACH, PT USING APPROPRIATELY.
[2018-06-23] VITALS (16 sets, daily range): BP systolic 74–121; BP diastolic 45–61
[2018-06-23 03:55] LABS: ABSOLUTE BASOPHILS 0.1 thou/uL (0.0-0.2); ABSOLUTE EOSINOPHILS 0.6 thou/uL (0.0-0.7); ABSOLUTE LYMPHOCYTES 1.4 thou/uL (0.8-5.3); ABSOLUTE MONOCYTES 1.2 thou/uL (0.0-1.2); ABSOLUTE NEUTROPHILS 11.7 thou/uL (1.6-8.1); BASOPHILS 0.6 %; EOSINOPHILS 3.7 %; HEMATOCRIT 40.6 % (42.0-52.0); HEMOGLOBIN 13.5 gm/dL (14.0-18.0); LYMPHOCYTES 9.1 %; MCH 31.5 pg (26.0-34.0); MCHC 33.1 g/dL (28.0-37.0); MCV 95.1 fL (80.0-100.0); MONOCYTES 8.1 %; MPV 7.8 fl. (7.2-11.1); NUCLEATED RBCS 0 /100WBC; PLATELET COUNT* 193 thou/uL (150-400); POLYS 78.5 %; RBC 4.27 mil/uL (4.50-6.00); RDW-CV 13.5 % (10.5-14.5); WBC 14.9 thou/uL (4.0-11.0)
[2018-06-23 04:12] LABS: CALCIUM 7.6 mg/dL (8.5-10.1); MAGNESIUM 1.9 mg/dL (1.8-2.4); POTASSIUM 4.4 mmol/L (3.5-5.1)
--- NOTE | 2018-06-23 11:04 | NUR ---
SPOKE WITH PT, HE IS SITTING UP IN THE CHAIR. PT SAYS HE IS FEELING MUCH BETTER, TOLERATING HIS CLEAR LIQUIDS. PT LIVES AT HOME WITH HIS , HAS BEEN ACTIVE AND INDEP. PT DENIES ANY DISCHARGE NEEDS. DISCUSSED ROLE OF CASE MGT, WILL CONTINUE TO FOLLOW.
--- NOTE | 2018-06-23 12:55 | CON ---
[address] [address] CONSULTATION Name: ZENAIDA GEORGES Room: [address] ADM IN M.R.#: [id number] Admission: 06/20/18 Attend Phys: Bobby Ram DO Discharge: Date of : 73 Report #: [id number] THIS REPORT FOR: //name// CC: Bobby Hernandez DO [facility] physician/PCP Allen Patterson DATE OF SERVICE: 06/22/2018 HISTORY OF PRESENT ILLNESS: The patient is a 42-year-old white male who I was asked to see in the hospital today after he was noted to be hypotensive. The patient has been followed by my partner, Dr. Allen Patterson. He has a long history of hypertension. He actually had a previous echocardiogram in 2014 that showed an ejection fraction of only 30% with left atrial enlargement. He was felt to have a cardiomyopathy. He actually underwent a cardiac catheterization back in 06/2015 from the right groin. Results showed a dilated left ventricle with an ejection fraction of only 25%. There were normal coronary arteries. He is felt to have a nonischemic cardiomyopathy. He is paced on an ISRA inhibitor and beta irving. He has done well since that time. He actually had an echocardiogram in August of this year that showed ejection fraction of 50% with left atrial enlargement. His cardiomyopathy is felt to have improved. He was last seen by my nurse practitioner at that time in the Cardiology Clinic. He states since then he continues to be active, going for walks. He denies exertional dyspnea, orthopnea, edema, chest pain, palpitations, syncope. Apparently in August of this year, he had an episode of diverticulitis requiring laparotomy with colostomy placement. He was electively admitted 3 days ago and had takedown of the colostomy. Yesterday, he was on monitored bed, was given his blood pressure medications. However, he subsequently developed hypotension. He was transferred to the ICU and given intravenous fluids. Today, he denies any significant lightheadedness, chest pain. PAST MEDICAL HISTORY: Otherwise significant for 2 knee surgeries, hernia repair, hypertension, hyperlipidemia. MEDICATIONS: Include aspirin, Lipitor, carvedilol, Lasix, lisinopril and potassium. ALLERGIES: He has intolerance to TETRACYCLINE. FAMILY HISTORY: His mother had hypertension. SOCIAL HISTORY: He is . He and his live in [place]. He works for [employer]. No smoking or alcohol abuse. REVIEW OF SYSTEMS: He is a large male standing 6 feet 1 inch and weighing 324 [facility] [address] [place] [address] CONSULTATION Name: ZENAIDA GEORGES Room: [address] IN [facility]#: [id number] Admission: 06/20/18 Attend Phys: Bobby Ram, DO Discharge: Date of : 73 Report #: [id number]. He has sleep apnea. He has used CPAP in the past. No history of stroke, asthma, GI bleeding, liver disease, kidney disease, cancer, psychiatric illness, chronic skin condition. PHYSICAL EXAMINATION: GENERAL: Revealed a large male sitting in a chair. He appeared in no distress. VITAL SIGNS: On admission, Wednesday at the time of surgery had a blood pressure of 120/80 with a pulse of 80. Last night, the blood pressure went down to only 68 systolic with pulse in the 80s. Currently, he has a blood pressure of 110/70 with a pulse of 70. He is afebrile. HEENT: He is anicteric. Conjunctivae pink. Mucous membranes appear dry. NECK: Veins were difficult to assess due to obesity. CHEST: Clear to auscultation. CARDIOVASCULAR: Regular rate and rhythm. ABDOMEN: Obese, soft, nontender. EXTREMITIES: Had no pitting edema. SKIN: Cool and dry. NEUROLOGIC: Nonfocal. RADIOLOGICAL DATA: His ECG on admission showed a sinus rhythm, no ST or T-wave change. His workup, he had portable chest x-ray on admission that showed normal heart size, clear lung joel and some atelectasis. He had a chest x-ray today that showed only atelectasis. LABORATORY DATA: Sodium 137, BUN 37, creatinine is now 3.9, which is up from 1.4 on admission, his SGOT 45, albumin 2.8. His previous LDL was 139 in 2015. Previous TSH 2.6. White blood cell count 15.5, hemoglobin 14.2. IMPRESSION AND RECOMMENDATIONS: 1. History of cardiomyopathy. Ejection fraction has improved. I would hold his ISRA inhibitor, beta irving and diuretic because of hypotension. 2. Hyperlipidemia. The patient is on a statin drug. 3. History of hypertension. 4. Acute kidney injury, suspect secondary to hypotension. 5. Recent takedown of a colostomy. 6. Sleep apnea. <ELECTRONICALLY SIGNED> By: Clyde Arauz MD, FACC 06/23/18 1255 1610 Clyde Arauz MD, FACC /nt
--- NOTE | 2018-06-23 17:31 | NUR ---
PATIENT PROGRESSING TOWARDS GOALS. AOX4. PLEASANT. MOTIVATED. PATIENT UP IN CHAIR THROUGHOUT SHIFT. AMBULATED IN THE HALLWAY X1 FOR 25 FEET. TOLERATED WELL. ABDOMINAL BINDER REMAINS IN PLACE, INCISION CHECKED AND REMAINS INTACT.HARI DRAIN IN PLACE, PUT OUT TOTAL OF 45 THIS SHIFT. TOLERATING CLEAR LIQUIDS WELL IF INTAKES SLOWLY. PAIN MEDICATION GIVEN X2 IV AND X2 PO PER PATIENT REQUEST WITH GOOD EFFECT. IV FLUIDS INFUSING AT 125 ML/HR PER EMAR. IV TO RIGHT HAND REMAINS PATENT WITH DRESSING INTACT. PATIENT DENIES NEW CONCERNS ABOUT CARE PLAN.
[2018-06-24] VITALS (9 sets, daily range): BP systolic 98–132; BP diastolic 59–74
[2018-06-24 04:17] LABS: HEMOGLOBIN 12.4 gm/dL (14.0-18.0); MCH 31.8 pg (26.0-34.0); MCHC 33.5 g/dL (28.0-37.0); MCV 95.1 fL (80.0-100.0); MPV 7.8 fl. (7.2-11.1); RBC 3.9 mil/uL (4.50-6.00); RDW-CV 13.2 % (10.5-14.5); WBC 11.7 thou/uL (4.0-11.0)
[2018-06-24 04:43] LABS: ALBUMIN 2.5 g/dL (3.4-5.0); CALCIUM 7.6 mg/dL (8.5-10.1); CREATININE 1.1 mg/dL (0.6-1.3); PHOSPHORUS* 2.7 mg/dL (2.5-4.9); POTASSIUM 4.7 mmol/L (3.5-5.1)
--- NOTE | 2018-06-24 04:48 | NUR ---
ASSUMED CARE OF PT AT 1900 PT ALERT AND ORIENTED X4 VS AND ASSESSMENT STABLE. PRAVENA STILL IN PLACE ON MIDLINE HARI ON THE RIGHT OF THE MIDLINEABDOMINAL BINDER IN PLACE OVER MIDLINE. PT GOT UP TO COMMODE THEN FELT NAUSEOUS GAVE PRN ZOFRAN, PT HAD SMALL LIQUID BM. PT TOOK BIPAP OFF AND REFUSED TO PUT IT BACK ON PLACE O2 4L NC SATS REMAINED IN THE 90'S. PT SLEPT THROUGH THE NIGHT. NSR ON THE MONITOR. WILL CONTINUE PLAN OF CARE.
--- NOTE | 2018-06-24 09:52 | CON ---
[address] [address] CONSULTATION Name: ZENAIDA GEORGES Room: [address] ADM IN M.R.#: [id number] Admission: 06/20/18 Attend Phys: Bobby Ram, DO Discharge: Date of : 73 Report #: [id number] THIS REPORT FOR: //name// CC: Bobby Ram [facility] physician/PCP Allen Patterson CONSULTING PHYSICIAN: Dr. Ram. REASON FOR CONSULTATION: Acute kidney injury. HISTORY OF PRESENT ILLNESS: A 42-year-old gentleman with a history of sigmoid diverticulitis with perforation in August of this year who was admitted for a colostomy takedown. On 06/20/2018, I was asked to see him because of a rise in the serum creatinine. His creatinine was 0.9 in August. On admission here, it was 1.4, it jumped up to 3.9 yesterday in the setting of low blood pressure, lisinopril, Lasix, pneumonia, ketorolac. He was started on some IV fluids and is doing much better today. He has no complaints, appears to be comfortable, has no underlying history of kidney disease nor does he have an outpatient kidney doctor. REVIEW OF SYSTEMS: Constitutional, psych, heme, eyes, ENT, respiratory, cardiac, GI, , endocrine, all negative except as documented above. PAST MEDICAL HISTORY: History of diverticulitis as described above, diabetes, hypertension. SOCIAL HISTORY: No tobacco. FAMILY HISTORY: Not pertinent in this 42-year-old female. PHYSICAL EXAMINATION: VITAL SIGNS: Blood pressure 106/55, pulse has been mostly running in the 70s-90s, respirations 15, temperature 36.6. GENERAL: No acute distress. EYES: Extraocular movements intact. EARS: Externally normal. CARDIOVASCULAR: Regular rate. LUNGS: Clear breath sounds. ABDOMEN: Soft. MUSCULOSKELETAL: Nontender. PSYCHIATRIC: Awake, alert. LABORATORY DATA: White cell count 14.9, hemoglobin 13.5, platelets 193. Sodium 138, potassium 4.4, chloride 105, bicarbonate 25, BUN 28, creatinine 2, glucose 105, calcium 7.6, magnesium 1.9. [place] [address] CONSULTATION Name: ZENAIDA GEORGES Room: [address] [facility]#: [id number] Admission: 06/20/18 Attend Phys: Bobby Ram DO Discharge: Date of : 73 Report #: [id number] ASSESSMENT: 1. Acute kidney injury in the setting of hypotension, ketorolac with an ejection fraction of 55%-60%. Also, was on lisinopril and Lasix and has pneumonia 08/24/2017. Creatinine was 0.9. On 06/20/2018, admission creatinine was 1.4, up to 3.9 on 06/22/2018, improving to 2.0 on 06/23/2018 with IV fluids. 2. Urinary tract infection. 3. Hypoalbuminemia. 4. Status post colostomy takedown with a history of sigmoid diverticulitis and perforation. 5. Pneumonia. PLAN: 1. Renal function is better, making urine. 2. Continue IV fluids. He is on antibiotics. 3. Check renal ultrasound. 4. Check labs again in the a.m. Thank you for requesting my opinion in the care and management of this patient. <ELECTRONICALLY SIGNED> By: Blanca aMrin MD 06/24/18 0952 1126 [id number] Marin MD /nt
--- NOTE | 2018-06-24 10:28 | NUR ---
Nutrition: Pt has h/o diverticulitis. RD provided fiber education in August. Pt admitted with colon perf. Advanced to Full liquid diet this morning; will remain Full liquids for now. Alb 2.5, prealb 18.6. Wt is stable: 330#. Had reanastomosis. Will follow for POC, diet advancement/tolerance, labs. Mild risk at t his time. Follow up 07/01/18.
--- NOTE | 2018-06-24 13:35 | NUR ---
ASSUMED PT CARE 1220. PT C/O OF ABDOMINAL PAIN 01/16. HYDROCODONE ADMININSTERED PER EMAR. PT TOLERATING FULL LIQUID DIET. INTAKE AND OUTPUT CHARTED.
--- NOTE | 2018-06-24 15:08 | OP ---
[address] [address] OPERATIVE REPORT Name: ZENAIDA GEORGES Room: [address] ADM IN M.R.#: [id number] Admission: 06/20/18 Attend Phys: Bobby Ram DO Discharge: Date of : 73 Report #: [id number] THIS REPORT FOR: //name// CC: Bobby Ram [facility] physician/PCP Allen Patterson DATE OF SERVICE: 06/20/2018 PREOPERATIVE DIAGNOSIS: History of acute diverticulitis with perforated diverticulitis and Saulo colostomy. POSTOPERATIVE DIAGNOSIS: History of acute diverticulitis with perforated diverticulitis and Saulo colostomy. PROCEDURE: Laparoscopic takedown of colostomy converted to exploratory laparotomy and takedown of colostomy. Also, rigid and flexible sigmoidoscopy with basket retrieval of inspissated stool in the rectal stump. Lysis of adhesions and also placement of a Prevena VAC system. SURGEON: Bobby Ram DO STRONG NITRIC OPERATOR: Dr. Ramona Segal. SECOND KNIFE SETTER: Dr. Heath Tinsley. ANESTHESIA: General endotracheal. ESTIMATED BLOOD LOSS: 300 mL. COMPLICATIONS: The patient had inspissated stool within the rectal vault at the distal end of the rectal stump. We also attempted laparoscopic reanastomosis; however, the anastomosis broke down immediately after most likely because of the inspissated stool. DRAINS: A 19-Ecuadorean HARI drain was placed. DESCRIPTION OF PROCEDURE: After obtaining proper consents and discussing risks and complications with the patient, he was taken to the operating room, laid in the supine position, administered general anesthesia. He was then placed in lithotomy position. A Costello catheter was inserted with good urine return. Preoperative antibiotics had been given. SCDs were in place. We then performed a timeout and confirmed that we had the appropriate patient and procedure. Preoperative antibiotics had been given and SCDs were in place. We then made a small supraumbilical skin incision with a #11 scalpel blade. This was carried down through the skin into the subcutaneous tissue [place] [address] OPERATIVE REPORT Name: ZENAIDA GEORGES Room: [address] IN ..#: [id number] Admission: 06/20/18 Attend Phys: Bobby Ram DO Discharge: Date of : 73 Report #: [id number] hemostasis. Once the fascia was encountered, it was incised along the midline, grasped and elevated with Rigoberto clamps and divided further. The peritoneum was then bluntly opened using a hemostat. A finger was placed inside the peritoneal cavity to ensure that there were no stephanie-incisional adhesions. Next, 2-0 Vicryl sutures were placed in a [id number] fashion to secure the Hermilo trocar, which was then inserted and insufflation was begun. Once insufflation was complete, full visual inspection of the anterior abdominal organs was performed. This did reveal some adhesions along the midline to the patient's previous incision. We placed another trocar in the right lower quadrant and then we were able to place the camera in the right lower quadrant and another 5 mm trocar in the right upper quadrant. We were then able to take down the adhesions to the midline. These all appeared to be just omentum. We could then visualize the colostomy going up through the abdominal wall. Once we identified this, then we went down into the pelvis. We did place the patient in Trendelenburg position. We were then easily able to identify the rectal stump because two sutures had been placed previously. We dissected the rectal stump free slightly to allow for reanastomosis. We then took down the adhesions around the descending colon as it went through the abdominal wall, freeing this area up. Once it was completely free, we then made an elliptical incision in the skin around the colostomy and dissected all the way down to the peritoneal opening. The colon was then brought up through the wound. We excised the stoma and a small portion of the descending colon along with it using a pursestring device and a Rigoberto clamp. We then used EEA sizers to determine the size of the EEA and elected to go with a 31 mm EEA. We then inserted the anvil of the EEA and tied the pursestring suture around it. We then dropped this back into the peritoneal cavity and used an Ubaldo wound protector device to cover the stoma site and then went back laparoscopically. In doing this, I then had an engineer second assistant go down below and place EEA sizers up through the anus. It appeared that there was some stool in front of this. We made a couple of different attempts using the EEA, but it did not appear that the spike was coming through in the appropriate place. So at this point, I went down below and performed rigid sigmoidoscopy where I identified a very hard piece of stool at the distal rectal stump and made many attempts using the rigid sigmoidoscope to pull this hard piece of stool out. I was able to remove some of it; however, not all of it. I then attempted to irrigate the rectum and tried to flush this out with no luck and then finally we elected to use a flexible sigmoidoscope and once we did that we used a basket to attempt to retrieve the hardened stool. We did pull out a fairly large piece of hardened stool and then I went back up with the flexible sigmoidoscope and it appeared that there was no more stool at the distal end. We then again inserted the EEA after I rescrubbed and we attempted to perform the anastomosis again. Immediately upon firing the EEA and then opening the clamp from the EEA, it appeared that the anterior portion of the anastomosis failed. At this point, I felt there was no way to fix this problem laparoscopically, so I elected to convert to an open procedure. The patient was quite obese, but we did make an incision from supraumbilical all the way down to the pubis. This was carried down through the [place] [address] OPERATIVE REPORT Name: ZENAIDA GEORGES Room: [address] IN ..#: [id number] Admission: 06/20/18 Attend Phys: Bobby Ram DO Discharge: Date of : 73 Report #: [id number] using electrocautery for hemostasis. Once the fascia was encountered, it was incised along the midline for the entire length of the incision. I then opened the peritoneum for the entire length of the incision. We then inserted a Fulton retractor and then explored the abdomen. We found that the anterior staple line approximately 50% had failed and it appeared that there was again a hardened piece of stool, which must have gotten pushed up with the EEA device. This hardened piece of stool was immediately removed. We then resected the colon in which the anastomosis had failed, leaving a hole in the rectal stump, which was repaired using interrupted 2-0 silk sutures. We then bubble tested this area to assure that it was holding firm and no leak was noted. We also placed Lembert stitches over top of this using 2-0 Vicryl suture to assure no leak. I then resected the proximal descending colon again and placed a handsewn pursestring suture. I then inserted the EEA anvil again. We then performed the anastomosis coming anterior on the more distal portion of the rectosigmoid. Once the anastomosis was performed, we bubble tested the area and assured there was no leak. Finding no leak, we then placed a 19-Ecuadorean Puma-Day drain, which was next to the anastomosis. We copiously irrigated the abdominal cavity. We then closed the left-sided stoma site using a running looped PDS suture #1 for the peritoneum and fascia in this area. I then closed the subcutaneous tissues using 3-0 Vicryl suture. We then closed the peritoneum and fascia of the midline incision using a running #1 looped PDS suture. We closed the subcutaneous tissue also using 3-0 Vicryl suture. The skin incisions were stapled closed. We did place a Prevena wound VAC along the midline incision as well. The patient was then awakened in the operating room and transported to recovery room in stable condition. <ELECTRONICALLY SIGNED> By: Bobby Ram DO 06/24/18 1508 1125 [id number] Ram DO /nt
--- NOTE | 2018-06-24 15:54 | NUR ---
CATHETER DC'D ON DR BENTON ORDERS. PT OKAY TO TRANSFER OUT OF ICU PER DR ADAIR AND DR CADE. PT AMBULATED IN ICU WITH THIS RN WITH GAIT BELT AND WALKER.
--- NOTE | 2018-06-24 18:47 | NUR ---
ASSUMED PT CARE @ 1650. PT ORIENTED TO ROOM. CALL LIGHT WITHIN REACH.
--- NOTE | 2018-06-24 18:50 | NUR ---
PT ALERT AND ORIENTED X 4. RECEIVED HYDROCODONE FOR ABDOMINAL PAIN. TOLERATED FULL LIQUID DIET. IV PATENT. HARI DRAIN IN PLACE. WOUND VAC-PROVENA PRESENT. ABDOMINAL DRESSINGS-C/D/I. PT ON RA-O2 SAT @ 95% CALL LIGHT WITHIN REACH. HOURLY ROUNDS MAINTAINED. NURSING TO CONTINUE TO MONITOR.
[2018-06-25] VITALS: BP 121/73
[2018-06-25 04:00] VITALS: BP 143/84
--- NOTE | 2018-06-25 04:42 | NUR ---
END SHIFT: PT RESTED WELL. C/O PAIN RELIVED WITH ALTERNATING ORAL AND IV ANTIBIOTICS. 2 BM'S OVER SHIFT. ACTIVE BS IN ALL QUADS. ABD DRESSING CDI. WOUND VAC IN PLACE MIDLINE AND DRY AND INTACT. HARI DRAIN WITH MINIMAL SEROSANG FLUID. TOLERATING ADVANCED DIET WITH NO NAUSEA. ABLE TO AMBULATE TO BATHROOM WITH WALKER FOR SUPPORT. VOIDING WITHOUT DIFFICULTY. ABD BINDER IN PLACE. NSR ON MONITOR WITH NO CHANGES. VSS. ASSESSMENT UNCHANGED. SAFETY PRECAUTIONS IN PLACE. CALL LIGHT IN REACH. PERFORMED HOURLY ROUNDING. WILL CONT TO MONITOR.
[2018-06-25 04:49] LABS: ABSOLUTE EOSINOPHILS 0.4 thou/uL (0.0-0.7); ABSOLUTE LYMPHOCYTES 1.6 thou/uL (0.8-5.3); ABSOLUTE MONOCYTES 0.7 thou/uL (0.0-1.2); ABSOLUTE NEUTROPHILS 5.6 thou/uL (1.6-8.1); BASOPHILS 0.4 %; EOSINOPHILS 4.3 %; HEMATOCRIT 35.6 % (42.0-52.0); HEMOGLOBIN 12.4 gm/dL (14.0-18.0); LYMPHOCYTES 18.9 %; MCH 32.5 pg (26.0-34.0); MCHC 34.8 g/dL (28.0-37.0); MCV 93.3 fL (80.0-100.0); MONOCYTES 8.5 %; MPV 7.9 fl. (7.2-11.1); NUCLEATED RBCS 0 /100WBC; PLATELET COUNT* 199 thou/uL (150-400); POLYS 67.9 %; RBC 3.82 mil/uL (4.50-6.00); WBC 8.2 thou/uL (4.0-11.0)
[2018-06-25 04:57] LABS: CALCIUM 8.4 mg/dL (8.5-10.1); CREATININE 1.1 mg/dL (0.6-1.3); POTASSIUM 3.5 mmol/L (3.5-5.1)
[2018-06-25 09:30] VITALS: BP 138/77
[2018-06-25 11:53] VITALS: BP 149/83
--- NOTE | 2018-06-25 12:16 | NUR ---
ASSUMED PT CARE AT 0700 PT IS ALERT AND ORIENTED X 4 PT HAS SOME PAIN GAVE SCHEDULED PAIN MEDS WHICH PT STATES HELPS, PT DENIES SOA ON RA, PT IS UP WITH SBA PT IS NOT A FALL RISK, PT WORKED WITH PHYSICIAL THERAPY PT TOLERATED, PT HAS ABDOMINAL BINDER ON PT HAS HARI DRAIN WHICH IS DRAINING APPROPRIATELY, PT IS SR PAC ON THE MONITOR, PT IS PROGRESSING TOWARDS GOALS, WILL CONTINUE TO MONITOR
[2018-06-25 15:45] VITALS: BP 146/82
[2018-06-25 20:00] VITALS: BP 134/75
[2018-06-26 00:01] VITALS: BP 144/88
[2018-06-26 04:01] VITALS: BP 152/99
--- NOTE | 2018-06-26 07:44 | NUR ---
ASSUMED PT CARE AT 1930. ASSESSMENT COMPLETED CHARTED. PT C/O ABDOMINAL PAIN FROM RECENT SURGERY. GAVE PRN PAIN MEDICATION PER P.O. UP AD MARIA GUADALUPE, TAKES DRAINS WITH HIM. ABLE TO MAKE NEEDS KNOWN. WILL CONTINUE TO MONITOR.
[2018-06-26 09:02] LABS: HEMATOCRIT 38.1 % (42.0-52.0); HEMOGLOBIN 12.8 gm/dL (14.0-18.0); MCH 31.3 pg (26.0-34.0); MCHC 33.7 g/dL (28.0-37.0); MCV 93.1 fL (80.0-100.0); MPV 7.8 fl. (7.2-11.1); RBC 4.09 mil/uL (4.50-6.00); RDW-CV 13.2 % (10.5-14.5); WBC 8.8 thou/uL (4.0-11.0)
[2018-06-26 09:11] LABS: CALCIUM 8.7 mg/dL (8.5-10.1); CREATININE 1.1 mg/dL (0.6-1.3); MAGNESIUM 1.6 mg/dL (1.8-2.4); PHOSPHORUS* 3.3 mg/dL (2.5-4.9); POTASSIUM 3.3 mmol/L (3.5-5.1)
[2018-06-26 09:30] VITALS: BP 158/105
[2018-06-26 12:01] VITALS: BP 142/65
[2018-06-26 15:39] VITALS: BP 129/76
--- NOTE | 2018-06-26 16:39 | NUR ---
ASSUMED PT CARE AT 0700 PT IS ALERT AND ORIENTED X 4 PT C/O SLIGHT PAIN GAVE PAIN MEDS PT STATES PAIN MEDS HELP, PT IS UP AD MARIA GUADALUPE PT IS NOT A FALL RISK, PT IS SR ON THE MONITOR PT AMBULATING HELPS PAIN, PT STITCHES OPEN TO AIR SITE IS APPROPRIATE NO SIGNS OF INFECTION NOTED, PT IS PROGRESSING TOWARDS GOALS, WILL CONTINUE TO MONITOR
[2018-06-26 16:57] LABS: MAGNESIUM 1.7 mg/dL (1.8-2.4); POTASSIUM 3.6 mmol/L (3.5-5.1)
[2018-06-26 20:00] VITALS: BP 145/90
[2018-06-27] VITALS: BP 148/84
--- NOTE | 2018-06-27 01:47 | NUR ---
ASSUMED PT CARE REPORT RECEIVED FROM NURSE. PT IS AOX4 SR ON COMPUTER TRAINER. VSS COMPLAINT OF PAIN IN ABDOMEN,. DILAUDID GIVEN. HARI DRAIN IN LLQ INTACT. EMPTY 70 CC AT 0000. ASSESSMENT PERFORMED, REFER TO CHART.PREVANA VAC IN PLACE AND INTACT. BIPAP AT HS. WILL CONTINUE TO MONITOR.
[2018-06-27 04:00] VITALS: BP 162/94
[2018-06-27 04:44] LABS: HEMATOCRIT 35.9 % (42.0-52.0); HEMOGLOBIN 12.2 gm/dL (14.0-18.0); MCH 31.6 pg (26.0-34.0); MPV 7.4 fl. (7.2-11.1); RBC 3.86 mil/uL (4.50-6.00); RDW-CV 12.7 % (10.5-14.5); WBC 9.3 thou/uL (4.0-11.0)
[2018-06-27 05:08] LABS: CALCIUM 8.3 mg/dL (8.5-10.1); CREATININE 1.1 mg/dL (0.6-1.3); POTASSIUM 3.6 mmol/L (3.5-5.1)
[2018-06-27 07:45] VITALS: BP 150/88
--- NOTE | 2018-06-27 08:25 | NUR ---
RECEIVED REPORT. ASSUMED CARE OF PT AT 0730. VSS. CARDIAC MONTIORING IN PLACE ST. AM ASSESSMENT AND VITALS COMPELTED CHARTED. PT ALERT AND ORIETNED. PT ON RA. IV SALINE LOCKED. PT DOES REPORT PAIN TO ABDOMEN THIS AM. PRN DILAUDID GIVEN. WOUND VAC REMOVED PER SURGERON THIS AM. ABD DRESSING IN PLACE C/D/I. PT IS UP AD MARIA GUADALUPE IN ROOM. PT DENEIS ANY N/V. PT'S ABD SOFT. BM T-1. PT INFORMED OF PLAN OF CARE. PT COMMUNICATES UNDERSTANDING. CALL LIGHT IS WITHIN REACH. WILL CONTINUE TO MONITOR FOR DURAITON OF SHFIT.
--- NOTE | 2018-06-27 10:18 | NUR ---
CONTINUE TO FOLLOW, MET WITH PT. STATES FEELING IMPROVED. HAS BEEN UP AND AMBULATING, STATES BOWELS ARE WORKING. HE PLANS TO RETURN HOME WITH AND DENIES ANY DC NEEDS. PT PLANS TO LOOK FOR NEW PCP, IS INTERESTED IN ONE NEAR DR GUSMAN'S OFFICE, WILL PROVIDE INFO. PT STATES HE HAS WORN THE BIPAP THE LAST FEW NIGHTS, HAD A SLEEP STUDY 3YRS AGO BUT NEVER GOT A CPAP. WILL DISCUSS WITH DR MARCIAL: CPAP NEED AND FOLLOW
[2018-06-27 12:07] VITALS: BP 150/84
[2018-06-27 15:35] LABS: MAGNESIUM 1.9 mg/dL (1.8-2.4); POTASSIUM 4.2 mmol/L (3.5-5.1)
[2018-06-27 16:30] VITALS: BP 168/75
--- NOTE | 2018-06-27 17:01 | NUR ---
VSS. PT MADE MED-SURG STATUS. PT PROGRESSING TOWARDS GOALS. PT IS UP AD MARIA GUADALUPE IN ROOM. PT DID AMBULATE IN [place] THIS SHFIT. PT'S WOUND VAC AND HARI DRAIN DISCONTINUED PER SURGERY. PT'S ELECTROLYTES REPLACED. PT'S PAIN WELL MANAGED THIS SHIFT. PT DID HAVE TO CHANGE ABD DRESSING X2 TODAY DUE TO SATURATION. WILL MONITOR THIS CLOSELY. INFORMED PT TO NOTIFY RN IF DRESSING NEEDED TO BE CHANGED. PT COMMUNICATES UNDERSTANDING. PLAN FOR DISCHARGE TOMORROW. PT INFORMED OF PLAN OF CARE. CALL LIGHT IS WITHIN REACH. WILL CONTINUE TO MONITOR FOR DURATION OF SHIFT.
[2018-06-27 19:51] VITALS: BP 146/89
[2018-06-28] VITALS: BP 164/91
[2018-06-28 05:15] LABS: HEMATOCRIT 37.2 % (42.0-52.0); HEMOGLOBIN 12.7 gm/dL (14.0-18.0); MCH 31.7 pg (26.0-34.0); MCHC 34.2 g/dL (28.0-37.0); MCV 92.6 fL (80.0-100.0); RBC 4.02 mil/uL (4.50-6.00); RDW-CV 13.1 % (10.5-14.5); WBC 8.7 thou/uL (4.0-11.0)
--- NOTE | 2018-06-28 05:20 | NUR ---
END SHIFT: PT RESTED WELL. PAIN CONTROLLED WITH ORAL PAIN MEDICATION. MIDLINE ABDOMINAL INCISION CLOSED WITH STAPES BUT OOZING. HAS CHANGED ABD DRESSING PAD MULTIPLE TIMES. PT HAS BEEN UP AND WALKED THE HALLS. ASSESSMENT UNCHANGED. VSS. SAFETY PRECAUTIONS IN PLACE. CALL LIGHT IN REACH. PERFORMED HOURLY ROUNDING. WILL CONT TO MONITOR.
[2018-06-28 05:31] LABS: CALCIUM 8.6 mg/dL (8.5-10.1); CREATININE 1.2 mg/dL (0.6-1.3)
[2018-06-28 05:36] LABS: POTASSIUM 4.1 mmol/L (3.5-5.1)
[2018-06-28 08:00] VITALS: BP 173/103
[2018-06-28 09:00] VITALS: BP 173/103
--- NOTE | 2018-06-28 10:00 | NUR ---
ASSUMED PT CARE AT 0700 PT IS ALERT AND ORIENTED X 4 PT HAS SLIGHT PAIN GIVEN PAIN MEDS WHICH PT STATES HELPS, PT IS UP AD MARIA GUADALUPE PT IS NOT A FALL RISK, PT IS MEDICAL SURGICAL STATUS PT IS CLEARED FOR DISCHARGE BY SURGERY AWAITING HOSPITALIST PT MET GOALS WILL CONTINUE TO MONITOR
[2018-06-28] MEDS ORDERED: NEURONTIN 400400 M1 PO (10:30)
[2018-06-28] MEDS ORDERED: TRAMADOL 50 MG50 MG PO (10:31)
[2018-06-28] MEDS ORDERED: NORCO 5-325 TA1 EACH PO (10:32)
--- NOTE | 2018-06-28 10:40 | NUR ---
ORDERS NOTED FOR DC HOME. MET WITH PT, STATES FEELING MUCH IMPROVED AND READY TO DC. PER KYREE/BRI, SHE WILL DELIVER CPAP TO PT'S ROOM THIS AM. PT MADE AWARE. HE PLANS TO FIND A NEW PCP AND HAS LIST OF DRS FROM DR GUSMAN. DENIES OTHER DC NEEDS, PLANS TO RETURN HOME WITH
== END 2018-06-28 11:30 | disposition home or self-care (01) | DRG 329 ==
LOC: M.PRE 09:15 → M.ORTHSURG 11:14 → M.TBA 11:14 → M.PRE 11:24 → M.ORTHSURG 22:19 → M.ICU 06-21 13:45 → M.2W 06-24 16:55
PROVIDERS: Family Medicine; Internal Medicine; Internal Medicine Nephrology; Surgery; ADMIT Surgery
PROC: 0DJD4ZZ Inspection of Lower Intestinal Tract, Percutaneous Endoscopic Approach (ICD-10-PCS; principal; 2018-06-20)
PROC: 0DBP4ZZ Excision of Rectum, Percutaneous Endoscopic Approach (ICD-10-PCS; principal; 2018-06-20)
PROC: 0DBM4ZZ Excision of Descending Colon, Percutaneous Endoscopic Approach (ICD-10-PCS; principal; 2018-06-20)
PROC: 0DBM0ZZ Excision of Descending Colon, Open Approach (ICD-10-PCS; principal; 2018-06-20)
PROC: 0DJD8ZZ Inspection of Lower Intestinal Tract, Via Natural or Artificial Opening Endoscopic (ICD-10-PCS; principal; 2018-06-20)
PROC: 5A09357 Assistance with Respiratory Ventilation, Less than 24 Consecutive Hours, Continuous Positive Airway Pressure (ICD-10-PCS; 2018-06-23)
PROC: 5A09357 Assistance with Respiratory Ventilation, Less than 24 Consecutive Hours, Continuous Positive Airway Pressure (ICD-10-PCS; 2018-06-27)
DX: Z43.3 Encounter for attention to colostomy (principal); I50.43 Acute on chronic combined systolic (congestive) and diastolic (congestive) heart failure; J15.6 Pneumonia due to other Gram-negative bacteria; J96.00 Acute respiratory failure, unspecified whether with hypoxia or hypercapnia; N17.9 Acute kidney failure, unspecified; I42.9 Cardiomyopathy, unspecified; N39.0 Urinary tract infection, site not specified; I13.0 Hypertensive heart and chronic kidney disease with heart failure and stage 1 through stage 4 chronic kidney disease, or unspecified chronic kidney disease; Z68.41 Body mass index [BMI] 40.0-44.9, adult; E11.9 Type 2 diabetes mellitus without complications; N18.3 Chronic kidney disease, stage 3 (moderate); E66.01 Morbid (severe) obesity due to excess calories; E86.0 Dehydration; G47.33 Obstructive sleep apnea (adult) (pediatric); E88.09 Other disorders of plasma-protein metabolism, not elsewhere classified; I95.9 Hypotension, unspecified; Z82.49 Family history of ischemic heart disease and other diseases of the circulatory system; Z79.82 Long term (current) use of aspirin; Z79.899 Other long term (current) drug therapy; Z88.1 Allergy status to other antibiotic agents; Z83.79 Family history of other diseases of the digestive system

== ENCOUNTER 2019-04-19 11:20 | Observation (INO) | payer OTHER ==
[~2019-04-19] VITALS: Ht 185.4 cm; Wt 164.7 kg
[~2019-04-19 11:20] MED LIST changes: +ASPIR 8181 MG PO; -ASPIRIN325 PO; +NEURONTIN 400400 M1 PO; +NORCO 5-325 TA1 EACH PO; +TRAMADOL 50 MG50 MG PO
[2019-04-19 11:22] VITALS: BP 190/100
[2019-04-19 11:39] LABS: ABSOLUTE BASOPHILS 0.1 thou/uL (0.0-0.2); ABSOLUTE EOSINOPHILS 0.2 thou/uL (0.0-0.7); ABSOLUTE LYMPHOCYTES 2.9 thou/uL (0.8-5.3); ABSOLUTE NEUTROPHILS 6.8 thou/uL (1.6-8.1); BASOPHILS 1.2 %; EOSINOPHILS 2.1 %; HEMATOCRIT 50.9 % (42.0-52.0); HEMOGLOBIN 17.6 gm/dL (14.0-18.0); LYMPHOCYTES 25.9 %; MCH 31.9 pg (26.0-34.0); MCHC 34.6 g/dL (28.0-37.0); MCV 92.2 fL (80.0-100.0); MONOCYTES 8.8 %; MPV 8.1 fl. (7.2-11.1); NUCLEATED RBCS 0 /100WBC; PLATELET COUNT* 224 thou/uL (150-400); RBC 5.52 mil/uL (4.50-6.00); RDW-CV 13.8 % (10.5-14.5)
[2019-04-19 11:49] LABS: ANION GAP 10 mmol/L (7-16); BUN 18 mg/dL (7-18); CALCIUM 9.3 mg/dL (8.5-10.1); CHLORIDE 104 mmol/L (98-107); CO2 25 mmol/L (21-32); CREATININE 1.3 mg/dL (0.6-1.3); GLUCOSE 146 mg/dL (70-99); POTASSIUM 4.2 mmol/L (3.5-5.1); SODIUM 139 mmol/L (136-145)
[2019-04-19 11:52] LABS: APTT 28.1 Seconds (25.0-31.3); INR 1.1; PROTIME 10.9 Seconds (9.20-11.50)
[2019-04-19 12:04] LABS: ALBUMIN 3.6 g/dL (3.4-5.0); ALKALINE PHOSPHATASE 112 U/L (46-116); CK-MB MASS 2.9 ng/mL (<0.5-3.6); LIPASE 182 U/L (73-393); MAGNESIUM 1.7 mg/dL (1.8-2.4); NT-PRO BRAIN NAT PEPTIDE 36 pg/mL (<300); SGOT 16 U/L (15-37); SGPT 50 U/L (30-65); TOTAL BILIRUBIN 0.5 mg/dL (<0.1-1.0); TOTAL PROTEIN 7.3 g/dL (6.4-8.2); TROPONIN-I LEVEL <0.06 ng/mL (<0.06)
[2019-04-19 16:54] VITALS: BP 151/103
[2019-04-19 17:00] VITALS: BP 150/94
--- NOTE | 2019-04-19 17:00 | NUR ---
ER ADMIT TO 202 PATIENT UP VIA CART TELEPHONE REPORT GIVEN PRIOR TO ARRIVAL PATIENT ORIENTED TO AND CALL LIGHT VITAL SIGNS TAKEN AND STABLE DENIES PAIN
[2019-04-19 18:56] LABS: URINE BILIRUBIN NEGATIVE (Negative); URINE BLOOD NEGATIVE (Negative); URINE CLARITY CLEAR; URINE COLOR YELLOW; URINE GLUCOSE-RANDOM NEGATIVE (Negative); URINE KETONES NEGATIVE (Negative); URINE LEUKOCYTES-REFLEX NEGATIVE (Negative); URINE NITRITE-REFLEX NEGATIVE (Negative); URINE PROTEIN NEGATIVE (Negative); URINE SPECIFIC GRAVITY 1.015 (1.005-1.030); URINE UROBILINOGEN 0.2 E.U./dl (0.2-1.0)
[2019-04-19 19:05] LABS: AMP/METHAMP Negative (Negative); BARBITURATES Negative (Negative); BENZODIAZEPINES Negative (Negative); COCAINE Negative (Negative); METHADONE Negative (Negative); OPIATES Negative (Negative); PCP Negative (Negative); THC Negative (Negative)
[2019-04-19 19:40] VITALS: BP 122/77
[2019-04-20] VITALS: BP 133/76
[2019-04-20 04:00] VITALS: BP 128/69
--- NOTE | 2019-04-20 05:13 | NUR ---
PT CARE ASSUMED AT 1930. SAT MAINTAINED IN O2. ALERT AND ORIENTED X4. CALL LIGHT WITHIN REACH AND BED IN LOW POSITION. C/O MILD CHEST PAIN, DENIES ANY NUMBNESS AND RADIATION, REFUSED TO TAKE PAIN MEDICATION. HOURLY ROUNDING DONE FOR PT SAFETY.
[2019-04-20 05:15] LABS: ABSOLUTE EOSINOPHILS 0.3 thou/uL (0.0-0.7); ABSOLUTE LYMPHOCYTES 2.9 thou/uL (0.8-5.3); ABSOLUTE MONOCYTES 0.8 thou/uL (0.0-1.2); ABSOLUTE NEUTROPHILS 6.5 thou/uL (1.6-8.1); ANION GAP 10 mmol/L (7-16); BASOPHILS 0.4 %; BUN 19 mg/dL (7-18); CALCIUM 9.4 mg/dL (8.5-10.1); CHLORIDE 101 mmol/L (98-107); CHOLESTEROL 162 mg/dL (<200); CO2 27 mmol/L (21-32); CREATININE 1.2 mg/dL (0.6-1.3); EOSINOPHILS 2.5 %; GLUCOSE 115 mg/dL (70-99); HDL CHOLESTEROL 39 mg/dL (>40); HEMATOCRIT 54.3 % (42.0-52.0); HEMOGLOBIN 18.2 gm/dL (14.0-18.0); LDL CHOLESTEROL 94 mg/dL (<100); LYMPHOCYTES 27.4 %; MAGNESIUM 2.3 mg/dL (1.8-2.4); MCH 31.4 pg (26.0-34.0); MCHC 33.5 g/dL (28.0-37.0); MCV 93.6 fL (80.0-100.0); MONOCYTES 7.8 %; MPV 8.2 fl. (7.2-11.1); NUCLEATED RBCS 0 /100WBC; PLATELET COUNT* 212 thou/uL (150-400); POLYS 61.9 %; RDW-CV 13.7 % (10.5-14.5); SODIUM 138 mmol/L (136-145); TC:HDL 4.2 Ratio (Not establshd); TRIGLYCERIDE 148 mg/dL (<150); VLDL 30 mg/dL (<40); WBC 10.5 thou/uL (4.0-11.0)
[2019-04-20 05:22] LABS: SERUM ASSESSMENT CLEAR
--- NOTE | 2019-04-20 07:15 | NUR ---
CHANGE OF SHIFT, BEDSIDE REPORT GIVEN PATIENT SEEN AT BEDSIDE, IN BED AND RESTING ASSUMED PATIENT CARE
[2019-04-20 08:00] VITALS: BP 143/88
--- NOTE | 2019-04-20 09:47 | NUR ---
Pt is A&O. Resides at home with his . Active and independent. NO DME. No hx of HH or SNF. [place]al [place] at [place]. Following
[2019-04-20 12:00] VITALS: BP 128/83
[2019-04-20] MEDS ORDERED: LASIX 40 MG TAB40 M2 PO (15:09)
[2019-04-20] MEDS ORDERED: KLOR-CON 1010 MEQ PO (15:09)
[2019-04-20 16:09] VITALS: BP 128/83
--- NOTE | 2019-04-20 16:30 | 2DMMODE ---
[place] [address] 2 D/M-MODE ECHOCARDIOGRAM Name: ZENAIDA GEORGES Room: [address] M.R.#: [id number] Admission: 04/19/19 Attend Phys: Fortunato Borden MD Discharge: Date of : 73 Date of Service: 04/20/19 1630 Report #: [id number] THIS REPORT FOR: //name// APPROVED REPORT Study performed: 04/20/2019 11:00:46 EXAM: Comprehensive 2D, Doppler, and color-flow Echocardiogram Patient Location: In-Patient Room #: 202 Status: routine BSA: 2.76 HR: 60 bpm BP: 143/88 mmHg Rhythm: NSR Other Information Study Quality: Good Indications Congestive Heart Failure 2D Dimensions IVSd: 14.02 (7-11mm) LVOT Diam: 22.45 (18-24mm) LVDd: 46.49 mm PWd: 12.82 (7-11mm) Ascending Ao: 31.75 (22-36mm) LVDs: 26.31 (25-40mm) Aortic Root: 31.60 mm Volumes Left Atrial Volume (Systole) LA ESV Index: 15.50 mL/m2 Aortic Valve AoV Peak Huy.: 1.20 m/s AO Peak Gr.: 5.80 mmHg LVOT Max P.27 mmHg AO Mean Gr.: 3.48 mmHg LVOT Mean P.47 mmHg LVOT Max V: 0.90 m/s AO V2 VTI: 20.59 cm LVOT Mean V: 0.54 m/s VAISHALI (VTI): 3.51 cm2 LVOT V1 VTI: 18.28 cm Mitral Valve E/A Ratio: 0.94 MV Decel. Time: 276.48 ms MV E Max Huy.: 0.54 m/[place] [address] 2 D/M-MODE ECHOCARDIOGRAM Name: ZENAIDA GEORGES JOEY Room: [address] M.R.#: [id number] Admission: 04/19/19 Attend Phys: Fortunato Borden MD Discharge: Date of : 73 Date of Service: 04/20/19 1630 Report #: [id number] MV PHT: 80.18 ms MVA (PHT): 2.74 cm2 TDI E/Lateral E': 6.00 E/Medial E': 4.91 Medial E' Huy.: 0.11 m/s Lateral E' Huy.: 0.09 m/s Pulmonary Valve PV Peak Huy.: 1.33 m/s PV Peak Gr.: 7.10 mmHg Left Ventricle The left ventricle is normal size. There is normal LV segmental wall motion. Borderline concentric left ventricular hypertrophy. Left ventricular systolic function is normal. The left ventricular ejection fraction is within the normal range. LVEF is 60-65%. Grade I - abnormal relaxation pattern. Right Ventricle The right ventricle is normal size. The right ventricular systolic function is normal. Atria The left atrium size is normal. The right atrium size is normal. Aortic Valve Mild aortic valve sclerosis. No aortic regurgitation is present. There is no aortic valvular stenosis. Mitral Valve The mitral valve is normal in structure. There is no mitral valve regurgitation noted. No evidence of mitral valve stenosis. Tricuspid Valve The tricuspid valve is normal in structure. Unable to assess PA pressure. Trace tricuspid regurgitation. Pulmonic Valve The pulmonary valve is normal in structure. There is no pulmonic valvular regurgitation. Great Vessels The aortic root is normal in size. IVC is normal in size and collapses >50% [place] [address] 2 D/M-MODE ECHOCARDIOGRAM Name: ZENAIDA GEORGES Room: [address] M.R.#: [id number] Admission: 04/19/19 Attend Phys: Fortunato Borden MD Discharge: Date of : 73 Date of Service: 04/20/19 1630 Report #: [id number] Pericardium There is no pericardial effusion. <Conclusion> The left ventricle is normal size. Borderline concentric left ventricular hypertrophy. Left ventricular systolic function is normal. The left ventricular ejection fraction is within the normal range. LVEF is 60-65%. Grade I - abnormal relaxation pattern. The right ventricle is normal size. The left atrium size is normal. Mild aortic valve sclerosis. No aortic regurgitation is present. There is no aortic valvular stenosis. The mitral valve is normal in structure. The tricuspid valve is normal in structure. IVC is normal in size and collapses >50% with inspiration. There is no pericardial effusion. There is normal LV segmental wall motion. <ELECTRONICALLY SIGNED> By: Nathaniel Workman MD, FACC 04/20/19 1630 [id number] Nathnaiel Workman MD, FACC /INF
--- NOTE | 2019-04-20 16:55 | NUR ---
PATIENT DISCHARGED TO HOME ALL DISCHARGE INSTRUCTIONS GIVEN, ACKNOWLEDGED, SIGNED COPIES GIVEN IV AND HEART MONITOR REMOVED PERSONAL BELONGINGS RETURNED ESCORTED OUT AMBULATORY GOOD CONDITION TO WAITING CAR
--- NOTE | 2019-04-20 17:58 | EKG ---
[place] [address] ELECTROCARDIOGRAM REPORT Name: ZENAIDA GEORGES JOEY Room: [address] M.R.#: [id number] Admission: 04/19/19 Attend Phys: Fortunato Borden MD Discharge: 04/20/19 Date of : 73 Report #: [id number] THIS REPORT FOR: //name// [facility] ED Test Date: 2019-04-19 Test Time: 11:14:20 Pat Name: ZENAIDA GEORGES Department: Room: [facility] Gender: M Bed Spring Maker: TDOWNS : 1975 Requested By: Fortunato Borden Order Number: [id number] Reading MD: Xu Davis Measurements Intervals [place] Rate: 0 P: 0 IN: QRS: 0 QRSD: T: QT: QTc: 0 Interpretive Statements All 12 leads are missing Compared to ECG 06/20/2018 11:32:46 Sinus rhythm no longer present Electronically Signed On 04-20-2019 17:58:01 CDT by Xu Davis [email or web address] <ELECTRONICALLY SIGNED> By: Isidro Davis MD, [facility] 04/20/19 1758 1114 1114 Isidro Davis MD, [facility] /EPI
--- NOTE | 2019-04-20 17:58 | EKG ---
[place] [address] ELECTROCARDIOGRAM REPORT Name: DESTINIZENAIDA Room: [address] M.R.#: [id number] Admission: 04/19/19 Attend Phys: Fortunato Borden MD Discharge: 04/20/19 Date of : 73 Report #: [id number] THIS REPORT FOR: //name// [facility] ED Test Date: 2019-04-19 Test Time: 11:24:09 Pat Name: ZENAIDA GEORGES Department: Room: [facility] Gender: M Armor Officer: TDRUPERTO : 1975 Requested By: Antonio Webster Order Number: [id number] MD: Xu Davis Measurements Intervals [place] Rate: 94 P: 61 IN: 168 QRS: 65 QRSD: 103 T: 41 QT: 333 QTc: 417 Interpretive Statements Sinus rhythm Baseline wander in lead(s) II,III,aVF Compared to ECG 06/20/2018 11:32:46 No significant changes Electronically Signed On 04-20-2019 17:58:09 CDT by Xu Davis [email or web address] <ELECTRONICALLY SIGNED> By: Isidro Davis MD, FACC 04/20/19 1758 1124 1124 Isidro Davis MD, [facility] /EPI
--- NOTE | 2019-04-20 18:04 | EKG ---
[place] [address] ELECTROCARDIOGRAM REPORT Name: DESTINIZENAIDA Room: [address] M.R.#: [id number] Admission: 04/19/19 Attend Phys: Fortunato Borden MD Discharge: 04/20/19 Date of : 73 Report #: [id number] THIS REPORT FOR: //name// [facility] Test Date: 2019-04-20 Test Time: 08:17:29 Pat Name: ZENAIDA GEORGES Department: Room: [facility] Gender: M Reimbursement Counselor: : 1975 Requested By: Fortunato Borden Order Number: [id number] Reading MD: Xu Davis Measurements Intervals [place] Rate: 62 P: 9 AR: 146 QRS: 49 QRSD: 102 T: 29 QT: 397 QTc: 404 Interpretive Statements Sinus rhythm Compared to ECG 06/20/2018 11:32:46 No significant changes Electronically Signed On 04-20-2019 18:04:32 CDT by Xu Davis [email or web address] <ELECTRONICALLY SIGNED> By: Isidro Davis MD, [facility] 04/20/19 1804 D: [id number] Isidro Davis MD, [facility] /EPI
[2019-04-21 02:06] LABS: GLYCOHEMOGLOBIN (HGB A1C) 5.6 % (4.8-5.6)
== END 2019-04-20 17:00 | disposition home or self-care (01) ==
LOC: M.ERS 11:20 → M.2W 12:28 → M.TBA-ER 12:28 → M.2W 17:03
PROVIDERS: Family Medicine; ADMIT Family Medicine
DX: I11.0 Hypertensive heart disease with heart failure (principal); I50.43 Acute on chronic combined systolic (congestive) and diastolic (congestive) heart failure; J96.01 Acute respiratory failure with hypoxia; E78.5 Hyperlipidemia, unspecified; G47.33 Obstructive sleep apnea (adult) (pediatric); E83.42 Hypomagnesemia; I42.9 Cardiomyopathy, unspecified; E66.01 Morbid (severe) obesity due to excess calories; Z68.42 Body mass index [BMI] 45.0-49.9, adult; Z88.0 Allergy status to penicillin; Z79.82 Long term (current) use of aspirin; Z79.02 Long term (current) use of antithrombotics/antiplatelets; Z79.899 Other long term (current) drug therapy

== ENCOUNTER 2019-05-21 13:49 | Inpatient (IN) | payer OTHER ==
[~2019-05-21] VITALS: Ht 185.4 cm; Wt 166.0 kg
[2019-05-21 13:53] VITALS: BP 159/97
[2019-05-21 14:16] LABS: HEMATOCRIT 50.8 % (42.0-52.0); HEMOGLOBIN 17.8 gm/dL (14.0-18.0); MCH 31.6 pg (26.0-34.0); MCV 90.2 fL (80.0-100.0); NUCLEATED RBCS 0 /100WBC; PLATELET COUNT* 260 thou/uL (150-400); RBC 5.63 mil/uL (4.50-6.00); RDW-CV 13.3 % (10.5-14.5); WBC 12.8 thou/uL (4.0-11.0)
[2019-05-21 14:22] LABS: CALCIUM 10.2 mg/dL (8.5-10.1); CREATININE 1.4 mg/dL (0.6-1.3); POTASSIUM 4.1 mmol/L (3.5-5.1)
[2019-05-21 14:26] LABS: ALBUMIN 4.1 g/dL (3.4-5.0); TOTAL BILIRUBIN 0.7 mg/dL (<0.1-1.0); TOTAL PROTEIN 8.1 g/dL (6.4-8.2)
[2019-05-21 15:10] LABS: ABSOLUTE EOSINOPHILS 0.4 thou/uL (0.0-0.7); ABSOLUTE LYMPHOCYTES 1.2 thou/uL (0.8-5.3); ABSOLUTE MONOCYTES 0.8 thou/uL (0.0-1.2); ABSOLUTE NEUTROPHILS 10.5 thou/uL (1.6-8.1); PLATELET ESTIMATE ADEQUATE
[2019-05-21 15:47] LABS: URINE BILIRUBIN NEGATIVE (Negative); URINE BLOOD NEGATIVE (Negative); URINE CLARITY CLEAR; URINE COLOR YELLOW; URINE GLUCOSE-RANDOM NEGATIVE (Negative); URINE KETONES NEGATIVE (Negative); URINE LEUKOCYTES-REFLEX NEGATIVE (Negative); URINE NITRITE-REFLEX NEGATIVE (Negative); URINE PROTEIN NEGATIVE (Negative); URINE SPECIFIC GRAVITY <= 1.005 (1.005-1.030); URINE UROBILINOGEN 0.2 E.U./dl (0.2-1.0)
[2019-05-21 16:00] VITALS: BP 148/80
[2019-05-21 16:30] VITALS: BP 144/88
[2019-05-21 21:00] VITALS: BP 134/93
[2019-05-22 04:35] LABS: HEMATOCRIT 52.4 % (42.0-52.0); HEMOGLOBIN 17.9 gm/dL (14.0-18.0); MCH 31.2 pg (26.0-34.0); MCHC 34.2 g/dL (28.0-37.0); RBC 5.76 mil/uL (4.50-6.00); RDW-CV 13.8 % (10.5-14.5); WBC 20.7 thou/uL (4.0-11.0)
[2019-05-22 05:53] LABS: CALCIUM 9.4 mg/dL (8.5-10.1); CREATININE 1.6 mg/dL (0.6-1.3); POTASSIUM 4.7 mmol/L (3.5-5.1)
[2019-05-22 06:29] LABS: MAGNESIUM 1.9 mg/dL (1.8-2.4)
[2019-05-22 07:50] VITALS: BP 148/81
--- NOTE | 2019-05-22 11:12 | EKG ---
[place] [address] ELECTROCARDIOGRAM REPORT Name: ZENAIDA GEORGES Room: [address] ADM IN M.R.#: [id number] Admission: 05/21/19 Attend Phys: Sawyer Mathis Discharge: Date of : 73 Report #: [id number] THIS REPORT FOR: //name// [facility] ED Test Date: 2019-05-21 Test Time: 13:56:02 Pat Name: ZENAIDA GEORGES Department: Room: [facility] Gender: M Sausage Maker: : 1975 Requested By: Karie Padilla Order Number: [id number] MD: Clyde Arauz Measurements Intervals [place] Rate: 74 P: 65 [place]: 163 QRS: 64 QRSD: 103 T: 38 QT: 380 QTc: 422 Interpretive Statements Sinus rhythm Compared to ECG 04/20/2019 08:17:29 No significant changes Electronically Signed On 05-22-2019 11:12:28 CDT by Clyde Arauz [email or web address] <ELECTRONICALLY SIGNED> By: Clyde Arauz MD, [facility] 05/22/19 1112 1356 [id number] Clyde Arauz MD, FACC /EPI
[2019-05-22 15:48] VITALS: BP 148/97
[2019-05-23] VITALS: BP 134/73
[2019-05-23 05:07] LABS: HEMATOCRIT 46.6 % (42.0-52.0); MCH 31.8 pg (26.0-34.0); MCHC 34.2 g/dL (28.0-37.0); MCV 92.9 fL (80.0-100.0); MPV 7.9 fl. (7.2-11.1); RBC 5.02 mil/uL (4.50-6.00); RDW-CV 13.6 % (10.5-14.5); WBC 9.9 thou/uL (4.0-11.0)
[2019-05-23 05:16] LABS: ALBUMIN 3.1 g/dL (3.4-5.0); CALCIUM 8.3 mg/dL (8.5-10.1); CREATININE 1.4 mg/dL (0.6-1.3); MAGNESIUM 2.1 mg/dL (1.8-2.4); POTASSIUM 3.8 mmol/L (3.5-5.1); TOTAL BILIRUBIN 0.8 mg/dL (<0.1-1.0); TOTAL PROTEIN 6.4 g/dL (6.4-8.2)
[2019-05-23 10:10] VITALS: BP 152/98
[2019-05-23 16:00] VITALS: BP 133/81
[2019-05-23 21:00] VITALS: BP 146/78
[2019-05-24 04:59] LABS: HEMATOCRIT 46.9 % (42.0-52.0); MCH 31.3 pg (26.0-34.0); MCHC 34.1 g/dL (28.0-37.0); MPV 7.8 fl. (7.2-11.1); RBC 5.09 mil/uL (4.50-6.00); RDW-CV 13.8 % (10.5-14.5); WBC 11.6 thou/uL (4.0-11.0)
[2019-05-24 05:02] LABS: ALBUMIN 3.2 g/dL (3.4-5.0); CALCIUM 9.1 mg/dL (8.5-10.1); CREATININE 1.5 mg/dL (0.6-1.3); MAGNESIUM 2.2 mg/dL (1.8-2.4); PHOSPHORUS* 3.3 mg/dL (2.5-4.9); POTASSIUM 3.8 mmol/L (3.5-5.1); TOTAL BILIRUBIN 0.6 mg/dL (<0.1-1.0); TOTAL PROTEIN 6.9 g/dL (6.4-8.2)
[2019-05-24 07:55] VITALS: BP 151/94
[2019-05-24 11:10] VITALS: BP 151/94
[2019-05-24 20:10] VITALS: BP 162/60
[2019-05-25] VITALS (8 sets, daily range): BP systolic 113–140; BP diastolic 68–86
[2019-05-25 09:08] LABS: ABSOLUTE LYMPHOCYTES 1.8 thou/uL (0.8-5.3); ABSOLUTE MONOCYTES 1.2 thou/uL (0.0-1.2); ABSOLUTE NEUTROPHILS 10.4 thou/uL (1.6-8.1); BASOPHILS 0.2 %; EOSINOPHILS 0.4 %; LYMPHOCYTES 13.3 %; MCH 31.6 pg (26.0-34.0); MCV 92.9 fL (80.0-100.0); MONOCYTES 8.9 %; MPV 7.8 fl. (7.2-11.1); NUCLEATED RBCS 0 /100WBC; PLATELET COUNT* 204 thou/uL (150-400); POLYS 77.2 %; RBC 5.06 mil/uL (4.50-6.00); RDW-CV 13.6 % (10.5-14.5); WBC 13.4 thou/uL (4.0-11.0)
[2019-05-25 09:27] LABS: CALCIUM 8.9 mg/dL (8.5-10.1); CREATININE 1.4 mg/dL (0.6-1.3); MAGNESIUM 2.1 mg/dL (1.8-2.4); POTASSIUM 3.6 mmol/L (3.5-5.1); TOTAL BILIRUBIN 0.5 mg/dL (<0.1-1.0); TOTAL PROTEIN 6.6 g/dL (6.4-8.2)
[2019-05-26] VITALS (7 sets, daily range): BP systolic 133–163; BP diastolic 69–87
[2019-05-26 04:17] LABS: HEMATOCRIT 43.5 % (42.0-52.0); HEMOGLOBIN 14.5 gm/dL (14.0-18.0); MCH 31.1 pg (26.0-34.0); MCHC 33.3 g/dL (28.0-37.0); MCV 93.4 fL (80.0-100.0); MPV 7.7 fl. (7.2-11.1); RBC 4.66 mil/uL (4.50-6.00); RDW-CV 13.7 % (10.5-14.5); WBC 7.9 thou/uL (4.0-11.0)
[2019-05-26 04:33] LABS: CALCIUM 8.7 mg/dL (8.5-10.1); CREATININE 1.4 mg/dL (0.6-1.3); POTASSIUM 3.8 mmol/L (3.5-5.1)
[2019-05-27 03:46] VITALS: BP 154/96
[2019-05-27 04:55] LABS: HEMOGLOBIN 14.4 gm/dL (14.0-18.0); MCH 31.4 pg (26.0-34.0); MCHC 34.3 g/dL (28.0-37.0); MCV 91.7 fL (80.0-100.0); MPV 7.8 fl. (7.2-11.1); RBC 4.58 mil/uL (4.50-6.00); RDW-CV 13.2 % (10.5-14.5); WBC 8.5 thou/uL (4.0-11.0)
[2019-05-27 05:22] LABS: CALCIUM 8.9 mg/dL (8.5-10.1); CREATININE 1.2 mg/dL (0.6-1.3); MAGNESIUM 1.8 mg/dL (1.8-2.4); POTASSIUM 3.4 mmol/L (3.5-5.1)
[2019-05-27 11:11] VITALS: BP 154/96
[2019-05-27] MEDS ORDERED: OXYCODONE HCL 55 MG PO (11:29)
--- NOTE | 2019-06-20 13:34 | OP ---
[address] [address] OPERATIVE REPORT Name: ZENAIDA GEORGES Room: [address] [place] M.R.#: [id number] Admission: 05/21/19 Attend Phys: Sawyer Mathis Discharge: 05/27/19 Date of : 73 Report #: [id number] THIS REPORT FOR: //name// CC: Prasad Vargas MD DATE OF SERVICE: 05/24/2019 REFERRING PHYSICIAN: Prasad Hernandez DO and Dr. Pina MD. PREOPERATIVE DIAGNOSIS: Small bowel obstruction. POSTOPERATIVE DIAGNOSIS: Complete small bowel obstruction secondary to intra-abdominal adhesions. PROCEDURE: Diagnostic laparoscopy, release of small bowel obstruction and lysis of adhesions lasting 90 minutes. SURGEON: Bobby Ram DO. FELT HANGER: Vy Soliz DO SECOND EMPLOYEE BENEFITS DIRECTOR: Student doctor, Elidia Lynch MS3. ANESTHESIA: General endotracheal. ESTIMATED BLOOD LOSS: Less than 20 mL. COMPLICATIONS: None. DESCRIPTION OF PROCEDURE: After obtaining proper consent and discussing risks and complications with the patient, he was taken to the operating room, laid in the supine position, administered general endotracheal anesthetic. He was then prepped and draped in the usual sterile fashion. A Costello catheter was inserted as well. We then performed a timeout, confirmed the appropriate patient and procedure. Preoperative antibiotics had been given. SCDs were in place. We then made a small supraumbilical skin incision with a #11 scalpel blade. This was carried down through the skin into the subcutaneous tissue using electrocautery for hemostasis. Once the fascia was encountered, it was incised along the midline, grasped and elevated with Rigoberto clamps and divided further. The peritoneum was then bluntly opened using a hemostat. A finger was placed inside the peritoneal cavity to assure that there were no stephanie-incisional adhesions. Next, 2-0 Vicryl sutures were placed in a [id number] fashion to secure the Hermilo trocar, which was then inserted [place] [address] OPERATIVE REPORT Name: ZENAIDA GEORGES Room: [address] [place] .R.#: [id number] Admission: 05/21/19 Attend Phys: Sawyer Mathis Discharge: 05/27/19 Date of : 73 Report #: [id number] Once insufflation was complete, full visual inspection of the anterior abdominal organs was performed. This immediately revealed adhesions of the omentum to the abdominal wall, mostly in the left lower quadrant and along the midline and down into the pelvis. There were, however, some adhesions along the right side as well. We were able to identify some nondilated small bowel as well as some very dilated small bowel at this point. I then elected to place another 5 mm trocar in the left upper quadrant where there was little or where there were no adhesions and once this was placed, I was able to take down some of the adhesions along the left side using electrocautery and also blunt dissection. Once there was enough space for me to insert another trocar, I did place a third trocar in the left lower quadrant where we were then able to take down all of the remaining adhesions to the abdominal wall. The majority of these were omental adhesions; however, there was some small bowel that was adherent to the abdominal wall. I cautiously took this down using blunt and sharp dissection with laparoscopic scissors and also used electrocautery in some areas well away from the bowel. Once all of the adhesions were taken down from the abdominal wall, which took more than an hour, I then ran the entire small bowel starting with the decompressed small bowel and running it initially back to the cecum and then running in the opposite direction back towards the ligament of Treitz. Approximately mid jejunum, I identified an area of transition from very nondilated bowel to very dilated bowel and in this area, there was noted to be an adhesion to the mesentery, which was going across one loop of small bowel. The bowel looked completely viable. I was able to get an instrument underneath this and then using laparoscopic scissors, I divided this adhesion. Once I divided the adhesion, there was immediate release and we then again ran the small bowel from this point more proximally, there were some other filmy adhesions as well as some adhesions of omentum, which were freed using laparoscopic scissors and electrocautery to assure hemostasis. Following this, I again ran the small bowel back in the opposite direction. We again checked the areas where the adhesions I did for viability and of the small bowel. There were no serosal injuries identified. The bowel appeared to be well vascularized and completely intact. At this point, we then surveyed the rest of the abdominal cavity. Again, we looked at the gallbladder, which appeared normal. The liver was fatty in appearance, but normal. The stomach was normal. All of the large intestines and small intestines, which could be visualized, appeared normal at this point. We then elected to stop the operation, insufflation was stopped, all air was released. Trocars were removed. The umbilical fascia was then closed using the 2 previously placed 0 Vicryl sutures plus 2 additional 0 Vicryl sutures. Skin incisions were all closed using 4-0 Monocryl subcuticular stitches. Mastisol, Steri-Strips, sterile OpSite and pressure dressings were placed. The patient was awakened in the operating room and transported to recovery room in stable condition. <ELECTRONICALLY SIGNED> By: Bobby Ram DO 06/20/19 1334 1641 [id number] Ram DO /nt
== END 2019-05-27 12:15 | disposition home or self-care (01) | DRG 335 ==
LOC: M.ERS 13:49 → M.2W 15:39 → M.TBA-ER 15:39 → M.3W 15:39 → M.2W 05-24 18:20
PROVIDERS: Internal Medicine; Nurse Practitioner Family; Surgery; ADMIT Family Medicine
PROC: 0D9670Z Drainage of Stomach with Drainage Device, Via Natural or Artificial Opening (ICD-10-PCS; principal; 2019-05-22)
PROC: 0DN84ZZ Release Small Intestine, Percutaneous Endoscopic Approach (ICD-10-PCS; 2019-05-24)
DX: K56.52 Intestinal adhesions [bands] with complete obstruction (principal); R65.11 Systemic inflammatory response syndrome (SIRS) of non-infectious origin with acute organ dysfunction; N17.9 Acute kidney failure, unspecified; I42.9 Cardiomyopathy, unspecified; I50.42 Chronic combined systolic (congestive) and diastolic (congestive) heart failure; Z68.42 Body mass index [BMI] 45.0-49.9, adult; E78.5 Hyperlipidemia, unspecified; I11.0 Hypertensive heart disease with heart failure; E83.52 Hypercalcemia; G47.33 Obstructive sleep apnea (adult) (pediatric); E66.01 Morbid (severe) obesity due to excess calories; K76.0 Fatty (change of) liver, not elsewhere classified; E86.0 Dehydration; F41.9 Anxiety disorder, unspecified; Z93.3 Colostomy status; Z90.49 Acquired absence of other specified parts of digestive tract; Z79.899 Other long term (current) drug therapy; Z88.1 Allergy status to other antibiotic agents; Z83.79 Family history of other diseases of the digestive system

== ENCOUNTER 2019-09-28 15:05 | Emergency (ER) | payer OTHER ==
[~2019-09-28] VITALS: Ht 185.4 cm; Wt 161.9 kg
[~2019-09-28 15:05] MED LIST changes: +OXYCODONE HCL 55 MG PO
[2019-09-28] MEDS ORDERED: PAXIL40 MG PO (15:14)
[2019-09-28 15:43] LABS: ABSOLUTE EOSINOPHILS 0.2 thou/uL (0.0-0.7); ABSOLUTE LYMPHOCYTES 2.4 thou/uL (0.8-5.3); ABSOLUTE MONOCYTES 1.1 thou/uL (0.0-1.2); ABSOLUTE NEUTROPHILS 7.1 thou/uL (1.6-8.1); BASOPHILS 0.2 %; EOSINOPHILS 2.3 %; HEMATOCRIT 47.7 % (42.0-52.0); HEMOGLOBIN 16.7 gm/dL (14.0-18.0); LYMPHOCYTES 22.3 %; MCH 32.2 pg (26.0-34.0); MCHC 35.1 g/dL (28.0-37.0); MCV 91.9 fL (80.0-100.0); MONOCYTES 9.7 %; MPV 7.9 fl. (7.2-11.1); NUCLEATED RBCS 0 /100WBC; PLATELET COUNT* 251 thou/uL (150-400); POLYS 65.5 %; RBC 5.19 mil/uL (4.50-6.00); RDW-CV 13.5 % (10.5-14.5); WBC 10.9 thou/uL (4.0-11.0)
[2019-09-28 15:52] LABS: CALCIUM 8.5 mg/dL (8.5-10.1); CREATININE 1.7 mg/dL (0.6-1.3); POTASSIUM 4.3 mmol/L (3.5-5.1)
[2019-09-28 15:56] LABS: ALBUMIN 3.7 g/dL (3.4-5.0); TOTAL BILIRUBIN 0.7 mg/dL (<0.1-1.0); TOTAL PROTEIN 7.6 g/dL (6.4-8.2)
[2019-09-28 15:57] LABS: URINE BILIRUBIN NEGATIVE (Negative); URINE BLOOD NEGATIVE (Negative); URINE CLARITY CLEAR; URINE COLOR YELLOW; URINE GLUCOSE-RANDOM NEGATIVE (Negative); URINE KETONES NEGATIVE (Negative); URINE LEUKOCYTES-REFLEX NEGATIVE (Negative); URINE NITRITE-REFLEX NEGATIVE (Negative); URINE PROTEIN NEGATIVE (Negative); URINE SPECIFIC GRAVITY 1.025 (1.005-1.030); URINE UROBILINOGEN 0.2 E.U./dl (0.2-1.0)
[2019-09-28] MEDS ORDERED: NORCO 5-325 TA1 EAC1 PO (17:34)
[2019-09-28] MEDS ORDERED: IBU800 MG PO (17:34)
[2019-09-28] MEDS ORDERED: ONDANSETRON HCL4 M2 PO (17:34)
[2019-09-28 17:55] VITALS: BP 107/65
== END 2019-09-28 17:57 | disposition home or self-care (01) ==
LOC: M.ERS 15:05
PROVIDERS: Nurse Practitioner Family
DX: K43.9 Ventral hernia without obstruction or gangrene (principal); K40.20 Bilateral inguinal hernia, without obstruction or gangrene, not specified as recurrent; E78.5 Hyperlipidemia, unspecified; I11.0 Hypertensive heart disease with heart failure; I50.20 Unspecified systolic (congestive) heart failure; Z88.1 Allergy status to other antibiotic agents

== ENCOUNTER 2020-06-18 20:46 | Inpatient (IN) | payer OTHER ==
[~2020-06-18] VITALS: Ht 185.4 cm; Wt 169.2 kg
--- NOTE | ~2020-06-18 | OP ---
[address] [address] OPERATIVE REPORT Name: ZENAIDA GEORGES Room: [address] IN M.R.#: [id number] Admission: 06/19/20 Attend Phys: Bobby Ram DO Discharge: 06/22/20 Date of : 73 Report #: [id number] THIS REPORT FOR: //name// cc: ALICE NICOLSA KEVIN ~ CC: Bobby Nicolas DICTATED BY: Brandin Emerson DO DATE OF SERVICE: 06/19/2020 PREOPERATIVE DIAGNOSES: Incarcerated incisional hernia, bowel obstruction. POSTOPERATIVE DIAGNOSES: Strangulated incisional hernia and bowel obstruction. SURGEON: Bobby Ram DO CO-SURGEON: Brandin Emerson, PGY5 SILO TENDER: John Boss, MS4. OPERATION PERFORMED: Exploratory laparotomy and release of complete bowel obstruction, repair of strangulated incisional hernia with mesh implant was [address] ANESTHESIA: General, local. ESTIMATED BLOOD LOSS: 20 mL. SPECIMEN: Hernia sac. COMPLICATIONS: None. DISPOSITION: To the PACU in stable condition. INDICATIONS: The patient is a 44-year-old male with a complex surgical history including perforated diverticulitis requiring Saulo's colostomy with later laparoscopic converted to open colostomy reversal and a subsequent diagnostic laparoscopy with lysis of adhesions. The patient presented tonight with several hours of incarcerated hernia and developing nausea and vomiting. On CT, he was found to have a complete bowel obstruction at the hernia with a loop of small bowel and some surrounding fluid and stranding within the hernia sac. The patient had concerning laboratory values have a leukocytosis of 20 with a left shift and elevated creatinine and elevated lactic acid. For these reasons, the [address] [address] OPERATIVE REPORT Name: DESTINIZENAIDA JOEY Room: [address] IN [facility].#: [id number] Admission: 06/19/20 Attend Phys: Bobby Ram, DO Discharge: 06/22/20 Date of : 73 Report #: [id number] patient was informed of the risks and benefits of repair of his incisional hernia with possible mesh and possible need for bowel resection. Risks discussed included but were not limited to bleeding, infection, bowel injury, need for bowel resection and possible need for future operation. He understood these risks and decided to proceed with surgery. DESCRIPTION OF PROCEDURE: After informed consent was obtained, the patient was brought to the operating room and placed in supine position. SCDs were on and running. Preoperative antibiotics were given. General anesthesia was administered with an ET tube. The patient was prepped and draped in the usual sterile fashion. A surgical pause was held to confirm proper patient and procedure. A 15-cm vertical incision was made through his previous midline incision adjacent to the hernia bulge, which was to the right of midline. Cautery was used to dissect through the subcutaneous tissue until the hernia sac was identified. Blunt dissection was used to circumferentially dissect the hernia sac free from the surrounding tissues. Cautery was used to divide the tissue as well as Metzenbaum scissors when close to the hernia sac. Once the defect was completely circumferentially dissected, 2 hemostats were used to elevate the hernia sac. Metzenbaum scissors were used to open the hernia sac. There was immediate release of a dark bloody serosanguineous ascites. This was suctioned out. The hernia sac was incised with cautery within the hernia sac with some slightly ischemic omentum as well as an ischemic loop of bowel that was dusky with some minor hemorrhage of the mesentery. The fascial defect was opened and additional 2-3 cm superiorly to allow for complete release of the adhesion. The proximal and distal small bowel were brought out of the defect completely releasing the defect. The site of obstruction of the small bowel was evident. Once the obstruction was released, the color to the small bowel that was incarcerated and strangulated greatly improved and immediately pinked up the omentum and small bowel were returned into the abdomen. There was no sign of compromise of the bowel wall. There was no evidence of perforation. These tissues were returned into the abdomen. The hernia sac was completely excised using cautery. Fascial defect was measured at 4 cm craniocaudal and a 5 cm transverse. An [address] jackson mesh was selected, hydrated. The bowel was exteriorized once more inspected. It returned to a normal color. It was viable succuss contents were flowing through the bowel without any spillage or perforation. The bowel appeared completely viable and was left in place. The omentum also appeared viable. Some small omental adhesions were taken down using cautery. Cautery was used for hemostasis. This was all placed within the abdomen. The mesh was then inserted into the abdomen and the straps were elevated. A 4-point fixation at the superior, inferior and lateral edges were used to secure the mesh using 0 Prolene attaching the memory ring of the jackson mesh to the cardinal points. The fascial defect was then closed incorporating some of the mesh in an interrupted fashion using 0 Prolene. The wound was then closed in layered fashion using 3-0 Vicryl to close down the space and closing the wound in layered fashion and the skin was closed using jennifer. Wounds were cleansed and dressed with Telfa, 4 x 4s, ABDs and tape. The patient [facility] [address] [place] [address] OPERATIVE REPORT Name: ZENAIDA GEORGES Room: [address] IN M.R.#: [id number] Admission: 06/19/20 Attend Phys: Bobby Ram DO Discharge: 06/22/20 Date of : 73 Report #: [id number] was emerged from anesthesia and transferred to PACU in stable condition. All counts were correct. By: [id number] Ram DO /nt
[~2020-06-18 20:46] MED LIST changes: +IBU800 MG PO; +NORCO 5-325 TA1 EAC1 PO; +ONDANSETRON HCL4 M2 PO; +PAXIL40 MG PO
[2020-06-18 21:01] VITALS: BP 133/91
[2020-06-18] MEDS ORDERED: LORAZEPAM 0.50.5 MG PO (21:03)
[2020-06-18] MEDS ORDERED: ALLOPURINOL 10100 M1 PO (21:03)
[2020-06-18] MEDS ORDERED: CELEXA 20 MG TA20 MG PO (21:04)
[2020-06-18] MEDS ORDERED: NEURONTIN 300M300 M2 PO (21:04)
[2020-06-18] MEDS ORDERED: PHENERGAN 25 MG25 M1 PO (21:04)
[2020-06-18] MEDS ORDERED: FAMOTIDINE 20 M20 MG PO (21:05)
[2020-06-18] MEDS ORDERED: MELOXICAM15 MG PO (21:05)
[2020-06-18] MEDS ORDERED: VITAMIN C250 MG PO (21:05)
[2020-06-18 21:43] LABS: ABSOLUTE BASOPHILS 0.1 thou/uL (0.0-0.2); ABSOLUTE EOSINOPHILS 0.2 thou/uL (0.0-0.7); ABSOLUTE LYMPHOCYTES 2.1 thou/uL (0.8-5.3); ABSOLUTE MONOCYTES 0.9 thou/uL (0.0-1.2); ABSOLUTE NEUTROPHILS 16.8 thou/uL (1.6-8.1); BASOPHILS 0.5 %; EOSINOPHILS 0.9 %; HEMATOCRIT 56.4 % (42.0-52.0); HEMOGLOBIN 19.2 gm/dL (14.0-18.0); LYMPHOCYTES 10.3 %; MCH 31.4 pg (26.0-34.0); MCV 92.2 fL (80.0-100.0); MONOCYTES 4.4 %; MPV 7.7 fl. (7.2-11.1); NUCLEATED RBCS 0 /100WBC; PLATELET COUNT* 313 thou/uL (150-400); POLYS 83.9 %; RBC 6.11 mil/uL (4.50-6.00); RDW-CV 13.5 % (10.5-14.5)
[2020-06-18 22:05] LABS: CALCIUM 9.9 mg/dL (8.5-10.1); CREATININE 1.6 mg/dL (0.6-1.3); POTASSIUM 4.6 mmol/L (3.5-5.1)
[2020-06-18 22:09] LABS: ALBUMIN 4.4 g/dL (3.4-5.0); TOTAL BILIRUBIN 1.2 mg/dL (<0.1-1.0); TOTAL PROTEIN 8.9 g/dL (6.4-8.2)
[2020-06-19 00:51] VITALS: BP 134/84
[2020-06-19 05:00] VITALS: BP 139/70
--- NOTE | 2020-06-19 06:34 | NUR ---
PT RECIEVED FROM PACU IN ROOM 219. C/O PAIN, MEDICATION GIVEN PER EMAR. DENIES SOB. ABDOMINAL BINDER PRESENT. ALERT AND ORIENTED X4. CONTINOUS PULSE OX IN PLACE. CALL LIGHT WITHIN REACH AND BED IN LOW POSITION. HOURLY ROUNDING DONE FOR PT SAFETY.
[2020-06-19] MEDS ORDERED: COLACE100 MG PO (08:02)
[2020-06-19 08:50] VITALS: BP 109/68
--- NOTE | 2020-06-19 09:23 | NUR ---
CM SPOKE TO THE PT TO DISCUSS CM ASSESSMENT. PT A&O, ACTIVE, AND WORKS. PT USES 0 DME. PT HAS 0 HX OF HH. PT RESIDES AT HOME WITH SPOUSE. CM WILL REMAIN AVAILABLE TO ASSIST AND FOLLOW NEEDED.
--- NOTE | 2020-06-19 10:51 | EKG ---
[place] [address] ELECTROCARDIOGRAM REPORT Name: ZENAIDA GEORGES Room: [address] ADM IN M.R.#: [id number] Admission: 06/19/20 Attend Phys: Bobby Ram DO Discharge: Date of : 73 Date of Service: 06/18/202051 Report #: [id number] THIS REPORT FOR: //name// [facility] ED Test Date: 2020-06-18 Test Time: 20:52:40 Pat Name: ZENAIDA GEORGES Department: Room: [facility] Gender: M Digital Media Coordinator: AIXA : 1975 Requested By: Rachele Gupta Order Number: [id number] MD: Nathaniel Workman Measurements Intervals [place] Rate: 99 P: 62 HI: 162 QRS: 74 QRSD: 100 T: 35 QT: 331 QTc: 425 Interpretive Statements Sinus rhythm Compared to ECG 05/21/2019 13:56:02 No significant changes Electronically Signed On 06-19-2020 10:50:53 MANGLE CATCHER by Nathaniel Workman [email or web address] <ELECTRONICALLY SIGNED> By: Nathaniel Workman MD, [facility] 06/19/201049 51 51 Nathaniel Workman MD, FAC /EPI
[2020-06-19 11:13] LABS: HEMATOCRIT 47.3 % (42.0-52.0); MCH 31.2 pg (26.0-34.0); MCHC 33.5 g/dL (28.0-37.0); MCV 93.1 fL (80.0-100.0); NUCLEATED RBCS 0 /100WBC; PLATELET COUNT* 243 thou/uL (150-400); RBC 5.08 mil/uL (4.50-6.00); RDW-CV 13.5 % (10.5-14.5); WBC 16.5 thou/uL (4.0-11.0)
[2020-06-19 11:15] LABS: HEMOGLOBIN 15.8 gm/dL (14.0-18.0)
[2020-06-19 11:22] LABS: ALBUMIN 3.2 g/dL (3.4-5.0); CALCIUM 8.2 mg/dL (8.5-10.1); CREATININE 1.6 mg/dL (0.6-1.3); POTASSIUM 4.8 mmol/L (3.5-5.1); TOTAL PROTEIN 6.7 g/dL (6.4-8.2)
[2020-06-19 11:46] LABS: ABSOLUTE MONOCYTES 0.3 thou/uL (0.0-1.2); ABSOLUTE NEUTROPHILS 15.2 thou/uL (1.6-8.1)
[2020-06-19 11:47] LABS: PLATELET ESTIMATE ADEQUATE
--- NOTE | 2020-06-19 14:08 | NUR ---
ASSUMED CARE OF PT AT 0730. PT SITTING UP IN THE RECLINER THROUGHOUT SHIFT. A&0X4, COMPLAINS OF GENERALIZED ABDOMINAL PAIN. TREATED WITH SCHEDULED TORADOL AND PRN MORPHINE WITH PARTIAL RELIEF. PT COMPLAINED OF NAUSEA THIS AFTERNOON-TREATED WITH PRN ZOFRAN WITH RELIEF. PT MED SURG STATUS. PT ON 4L NC THIS AM SAT UPPER 90'S. PT TITRATED TO 2L NC SAT 93-94%. CONTINUOUS PULSE OX IN PLACE. IVF. PT UP WITH 1 ASSIST. PT UP TO RECLINER BID AND AMBULATED WITH NURSING ASSIST. ABDOMINAL BINDER IN PLACE OVER INCISION DRESSING-C/D/I. PT TOLERATING CLEAR LIQUIDS FAIR. PT GOAL FOR TODAY IS PAIN AND NAUSEA MGMT AND AMBULATE TID AND UP TO CHAIR BID. AM ASSESSMENT CHARTED. MEDICATIONS PER OCT. PT REPOSITIONS SELF. HOURLY ROUNDING OBSERVED. BED IN LOW POSITION. CALL LIGHT WITHIN REACH. WILL CONTINUE PLAN OF CARE.
[2020-06-19 20:10] VITALS: BP 121/78
[2020-06-20] VITALS: BP 109/55
[2020-06-20 04:39] LABS: ABSOLUTE BASOPHILS 0.1 thou/uL (0.0-0.2); ABSOLUTE EOSINOPHILS 0.1 thou/uL (0.0-0.7); ABSOLUTE LYMPHOCYTES 2.2 thou/uL (0.8-5.3); ABSOLUTE MONOCYTES 1.1 thou/uL (0.0-1.2); ABSOLUTE NEUTROPHILS 11.1 thou/uL (1.6-8.1); BASOPHILS 0.7 %; EOSINOPHILS 0.9 %; HEMOGLOBIN 14.5 gm/dL (14.0-18.0); LYMPHOCYTES 14.9 %; MCH 31.2 pg (26.0-34.0); MCHC 33.6 g/dL (28.0-37.0); MCV 92.9 fL (80.0-100.0); MONOCYTES 7.8 %; MPV 7.7 fl. (7.2-11.1); NUCLEATED RBCS 0 /100WBC; PLATELET COUNT* 203 thou/uL (150-400); POLYS 75.7 %; RBC 4.64 mil/uL (4.50-6.00); RDW-CV 14.2 % (10.5-14.5); WBC 14.6 thou/uL (4.0-11.0)
[2020-06-20 05:26] LABS: CALCIUM 8.1 mg/dL (8.5-10.1); CREATININE 1.5 mg/dL (0.6-1.3); POTASSIUM 4.1 mmol/L (3.5-5.1)
[2020-06-20 08:20] LABS: URINE BILIRUBIN NEGATIVE (Negative); URINE BLOOD NEGATIVE (Negative); URINE CLARITY CLEAR; URINE COLOR YELLOW; URINE GLUCOSE-RANDOM NEGATIVE (Negative); URINE KETONES NEGATIVE (Negative); URINE LEUKOCYTES-REFLEX NEGATIVE (Negative); URINE NITRITE-REFLEX NEGATIVE (Negative); URINE PROTEIN NEGATIVE (Negative); URINE SPECIFIC GRAVITY 1.025 (1.005-1.030); URINE UROBILINOGEN 0.2 E.U./dl (0.2-1.0)
[2020-06-20 08:36] VITALS: BP 122/74
--- NOTE | 2020-06-20 15:09 | NUR ---
CM INFORMED DURING PRIME ROUNDING OF THE PLAN OF CARE FOR THE PT. PT NOW MED SURG STATUS, AND REMAINS ON IV FLUIDS. NO D/C PLANNING NEEDS ANTICIPATED. CM WILL REMAIN AVAILABLE TO ASSIST AND FOLLOW NEEDED.
--- NOTE | 2020-06-20 15:38 | NUR ---
PT TRANSFERED TO ROOM 315 BY WHEELCHAIR WITH IV FLUIDS. ABD BINDER IN PLACE. SURGERY SITE WITH CHAVA. DRESSING C/D/I. PT UP AD MARIA GUADALUPE WITH STEADY GAIT. REPORT GIVEN TO STAS RAMÍREZ.
--- NOTE | 2020-06-20 18:19 | NUR ---
ASSUMED CARE OF PATIENT AT 1545. PATIENT IS UP AD MARIA GUADALUPE IN ROOM. PATIENT DENIES ANY PAIN AT THIS TIME. PATIENT IS TOLERATING CLEAR LIQUIDS BUT DID HAVE COMPLAINTS OF NAUSEA THIS EVENING, ZOFRAN GIVEN. PATIENT HAD BM THIS AFTERNOON. PATIENT DENIES ANY NEEDS AT THIS TIME. CALL LIGHT WITHIN REACH.
[2020-06-20 20:00] VITALS: BP 150/85
[2020-06-20 23:40] VITALS: BP 136/80
[2020-06-21 03:40] VITALS: BP 131/85
--- NOTE | 2020-06-21 06:45 | NUR ---
Alert andf oriented x 4. Midline incision with jennifer and covered with ABD dressing,abdominal binder on. He states that he is passing gas and had a BM yesterday. He is up independently in room. He had PRN pain meds x 1. He has slept well.
[2020-06-21 08:00] VITALS: BP 161/101
[2020-06-21 15:30] VITALS: BP 162/97
--- NOTE | 2020-06-21 18:32 | NUR ---
PATIENT UP AD MARIA GUADALUPE IN ROOM. PATIENT HAS COMPLAINTS OF SOME GAS PAINS AND HAS BEEN WALKING FREQUENTLY. PATIENT IS TOLERATING REGULAR DIET WITH A LITTLE NAUSEA, HAS DENIED NEED FOR ZOFRAN THIS EVENING BUT DID REQUIRE AFTER LUNCH. PATIENT PAIN IS WELL CONTROLLED AND DENIES NEED FOR ANY PAIN MEDICATION. PATIENT FEELS HE IS NOT READY TO GO HOME THIS EVENING. PATIENT DENIES ANY NEEDS AT THIS TIME. CALL LIGHT WITHIN REACH.
[2020-06-21 20:00] VITALS: BP 168/108
[2020-06-22 04:30] LABS: HEMATOCRIT 41.4 % (42.0-52.0); HEMOGLOBIN 14.5 gm/dL (14.0-18.0); MCH 32.1 pg (26.0-34.0); MCHC 35.1 g/dL (28.0-37.0); MCV 91.3 fL (80.0-100.0); MPV 7.8 fl. (7.2-11.1); RBC 4.53 mil/uL (4.50-6.00); RDW-CV 13.4 % (10.5-14.5); WBC 11.6 thou/uL (4.0-11.0)
[2020-06-22 04:59] LABS: CALCIUM 8.2 mg/dL (8.5-10.1); CREATININE 1.2 mg/dL (0.6-1.3); POTASSIUM 3.7 mmol/L (3.5-5.1); TOTAL BILIRUBIN 0.9 mg/dL (<0.1-1.0); TOTAL PROTEIN 6.3 g/dL (6.4-8.2)
--- NOTE | 2020-06-22 05:11 | NUR ---
PATIENT SLEPT WELL DURING THIS SHIFT. ORDER RECEIVED FOR PO PAIN MEDICATION. PT UP AD MARIA GUADALUPE TO BATHROOM. PT DENIES NEEDS AT THIS TIME. FREQUENTLY USED ITEMS AND CALL LIGHT WITHIN REACH. WILL CONTINUE TO MONITOR.
[2020-06-22 08:00] VITALS: BP 161/94
[2020-06-22 10:22] VITALS: BP 161/94
[2020-06-22 11:05] VITALS: BP 161/94
--- NOTE | 2020-06-22 11:09 | NUR ---
DISCHARGED HOME WITH . AMBULATED OUT WITH STEADY GAIT. IV DC'D PRIOR TO LEAVING. NO C/O PAIN. PT VERBALIZES UNDERSTANDING TO ALL DISCHARGE INSTRUCTIONS.
--- NOTE | 2020-06-24 10:06 | PATH ---
[address] [address] PATHOLOGY RPT PROCEDURE Name: GREG AN Room: [address] IN M.R.#: [id number] Admission: 06/19/20 Date of : 73 Discharge: 06/22/20 Report #: [id number] Path Case #: [id number] [facility] Accession Number: [id number] . 01 Material submitted: . hernia - HERNIA SAC . 01 Clinician provided ICD-10: n . 01 Clinical history: . INCARCERATED VENTRAL HERNIA; SMALL BOWEL OBSTRUCTION STRANGULATED INCISIONAL HERNIA . 02 Diagnosis: Hernia sac: - Benign, mesothelial-lined fibromembranous/fibrofatty tissue with mild chronic inflammation and fibrosis. (BRUNO:pan; 06/21/2020) JOSÉ MIGUEL 06/21/2020 1649 Local . 02 Electronically signed: . Abdullahi Hammonds MD, Pathologist NPI- [id number] . 01 Gross description: . The specimen is received in formalin, labeled "Greg An, hernia sac" and consists of a rubbery segment of pink-petersen tissue with a small amount of yellow lobulated tissue measuring 5.8 x 4.8 x 1.5 cm. No gross lesions identified and premium representative tissue is submitted in A1. (SDY; 06/20/2020) SYU/SYU 06/21/2020 1648 Local . 02 Pathologist provided ICD-10: K43.6, K56.609, K43.2 . 02 CPT . 850342 Specimen Comment: A courtesy copy of this report has been sent to [phone] Specimen Comment: [phone] Specimen Comment: Report sent to / DR SRIVASTAVA Performed at: [address] [id number] MD Fei Wray MD Phone: [phone] Performed at: [address] [address] PATHOLOGY RPT PROCEDURE Name: GREG AN Room: [address] IN M.R.#: [id number] Admission: 06/19/20 Date of : 73 Discharge: 06/22/20 Report #: [id number] Path Case #: [id number] [address] [place] [id number] MD Abdullahi Hammonds MD Phone: [phone]
== END 2020-06-22 10:43 | disposition home or self-care (01) | DRG 335 ==
LOC: M.ERS 20:46 → M.TBA-ER 06-19 00:11 → M.2W 06-19 00:11 → M.3W 06-20 15:38
PROVIDERS: Nurse Practitioner Family; Surgery; ADMIT Surgery; ATTEND Surgery
PROC: 0WUF0JZ Supplement Abdominal Wall with Synthetic Substitute, Open Approach (ICD-10-PCS; principal; 2020-06-19)
PROC: 0DNU0ZZ Release Omentum, Open Approach (ICD-10-PCS; 2020-06-19)
DX: K43.0 Incisional hernia with obstruction, without gangrene (principal); R65.11 Systemic inflammatory response syndrome (SIRS) of non-infectious origin with acute organ dysfunction; K56.601 Complete intestinal obstruction, unspecified as to cause; N17.9 Acute kidney failure, unspecified; E87.2 Acidosis; Z68.42 Body mass index [BMI] 45.0-49.9, adult; I50.22 Chronic systolic (congestive) heart failure; I11.0 Hypertensive heart disease with heart failure; E66.9 Obesity, unspecified; I50.9 Heart failure, unspecified; E78.5 Hyperlipidemia, unspecified; Z20.828 Contact with and (suspected) exposure to other viral communicable diseases; Z93.3 Colostomy status; Z90.49 Acquired absence of other specified parts of digestive tract; Z79.899 Other long term (current) drug therapy; Z88.1 Allergy status to other antibiotic agents; Z23 Encounter for immunization